=== PATIENT | female | born 1985 | race Caucasian/White ===

== ENCOUNTER → 2021-02-14 08:00 | Outpatient (CLI) | payer OTHER, SELFPAY ==
[2021-02-14 09:43] LABS: HCG,Quantitative 46476 mIU/ml (0-5.42)
== END ==
PROVIDERS: Visit Provider Nurse Practitioner Obstetrics & Gynecology
DX: Z34.90 Encounter for supervision of normal pregnancy, unspecified, unspecified trimester (principal)
CPT/HCPCS: 36415; 84702

== ENCOUNTER → 2021-02-28 11:36 | Outpatient (CLI) | payer OTHER, SELFPAY ==
[2021-02-28 12:14] LABS: Basophils % 0.3 % (0.1-2.0); Eosinophils % 0.6 % (0.1-12.0); Hematocrit 41.3 % (37.0-47.0); Lymphocytes # 1.9 K/mm3 (0.7-4.5); Lymphocytes % 25.8 % (10-50); Mean Corpuscular HGB Conc 33.8 g/dL (31.8-35.4); Mean Corpuscular Hemoglobin 29.2 pg (27.0-31.2); Mean Corpuscular Volume 86.5 fl (81-99); Mean Platelet Volume 6.8 fl (7.4-10.4); Monocytes # 0.4 K/mm3 (0.1-1.0); Monocytes % 5.5 % (1.7-9.3); Neutrophils # 4.9 K/mm3 (1.8-7.8); Neutrophils % 67.8 % (37.0-80.0); Platelet Count 387 K/mm3 (142-424); Red Blood Count 4.78 M/mm3 (4.20-5.40); Red Cell Distribution Width 12.8 % (11.5-17.5); White Blood Count 7.2 K/mm3 (4.8-10.8)
[2021-03-01 11:58] LABS: Rapid Plasma Reagin Ab Titer Non Reactive (NonRea<1:1)
[2021-03-02 06:20] LABS: HIV Screen 4th Generation wRfx Non Reactive (Non Reactive); Hepatitis B Surface Antigen Negative (Negative); Hepatitis C Antibody <0.1 s/co ratio (0.0-0.9)
== END ==
PROVIDERS: Visit Provider Nurse Practitioner Obstetrics & Gynecology
DX: Z34.90 Encounter for supervision of normal pregnancy, unspecified, unspecified trimester (principal)
CPT/HCPCS: 36415; 85025; 86592; 86703; 86762; 86850; 87340; 87380; G0432

== ENCOUNTER → 2021-03-06 14:42 | Outpatient (CLI) | payer OTHER, SELFPAY ==
--- NOTE | 2021-03-06 14:42 | US_ITS ---
PROCEDURE: US OB <= 14 WEEKS FETUS CLINICAL INDICATION: for dates Early Ob for dates COMPARISON: No exams were available for comparison FINDINGS: An intrauterine gestational sac is present with a pole with a crown-rump length of 2.49cm correlating to gestational age of 9weeks 2days. heart tones are present with an FHR of 178bpm. Yolk sac is noted. 17 mm right corpus luteum noted IMPRESSION: Live IUP at 9 weeks 2 days Estimated due date by Ultrasound is 10/07/2021 Dictated by: Neville Mc MD 03/06/2021 17:59 Nveille Mc MD in OV 03/06/2021 17:59
== END ==
PROVIDERS: PCP Internal Medicine Adolescent Medicine; Visit Provider Nurse Practitioner Obstetrics & Gynecology
DX: Z34.90 Encounter for supervision of normal pregnancy, unspecified, unspecified trimester (principal)
CPT/HCPCS: 76801

== ENCOUNTER → 2021-05-23 13:40 | Outpatient (CLI) | payer OTHER, SELFPAY ==
--- NOTE | 2021-05-23 13:41 | US_ITS ---
PROCEDURE: US OB /MATERNAL DETAIL CLINICAL INDICATION: 20 weeks gestation Anatomy Maternal obesity Breech Placenta anterior, high Cervix, fluid and anatomy normal COMPARISON: US US OB <= 14 WEEKS FETUS from 03/06/2021 FINDINGS: There is a single live fetus which is in breech presentation. Cervix is closed measuring 4 cm. Placenta is anterior and grade 1. Complete survey performed and was unremarkable on the submitted images as in PACS. No discrete anomalies identified on survey imaging by technologist. Active fetus. Three-vessel cord with satisfactory umbilical cord insertion. 4- chamber heart noted. Survey of brain & ventricles Unremarkable. Face and neck survey unremarkable. Diaphragm and chest views unremarkable. Abdomen: Both kidneys noted and unremarkable. Stomach noted and satisfactory. Spine: Survey of the spine satisfactory with no anomalies identified nor imaged. Both arms and legs noted. Amniotic Fluid: Adequate. Maternal adnexa: No significant findings. Measurements: Average ultrasound age 20weeks 3days. Gestational Age 20weeks 4days Estimated due date by ultrasound age 1110/07/2021. Estimated weight 347g BPD = 20weeks 4days OFD = 20weeks 4days HC = 19weeks 5days AC = 20weeks 3days FL = 20weeks 4days Growth Percentile= 32Percent% Heart Rate = 156bpm Cerebellum = 20weeks 2days Humerus = 20weeks 5days HC/AC is 1.14 CI is 0.79 FL/BPD is 0.7 FL/AC is 0.22 IMPRESSION: Live IUP in breech presentation an average ultrasound age of 20 weeks 3 days. No obvious anomalies. Please see above for detail Dictated by: Neville Mc MD 05/24/2021 07:57 Neville Mc MD in OV 05/24/2021 07:57
== END ==
PROVIDERS: PCP Internal Medicine Adolescent Medicine; Visit Provider Nurse Practitioner Obstetrics & Gynecology
DX: Z34.92 Encounter for supervision of normal pregnancy, unspecified, second trimester (principal); Z3A.20 20 weeks gestation of pregnancy
CPT/HCPCS: 76811

== ENCOUNTER → 2021-07-21 08:38 | Outpatient (CLI) | payer OTHER, SELFPAY | PROVIDERS: Visit Provider Nurse Practitioner Obstetrics & Gynecology | DX: Z34.90 Encounter for supervision of normal pregnancy, unspecified, unspecified trimester (principal) ==

== ENCOUNTER → 2021-07-28 08:36 | Outpatient (CLI) | payer OTHER, SELFPAY ==
[2021-07-28 09:06] LABS: Glucose,Fasting 114 mg/dl (74-100)
[2021-07-28 10:38] LABS: Glucose 1 Hour 185 mg/dL (74-100)
== END ==
PROVIDERS: Visit Provider Nurse Practitioner Obstetrics & Gynecology
DX: Z34.90 Encounter for supervision of normal pregnancy, unspecified, unspecified trimester (principal)
CPT/HCPCS: 36415; 82951

== ENCOUNTER → 2021-08-03 08:14 | Outpatient (CLI) | payer OTHER, SELFPAY ==
[2021-08-03 08:46] LABS: Glucose,Fasting 113 mg/dl (74-100)
[2021-08-03 11:00] LABS: Glucose 1 Hour 173 mg/dL (74-100)
[2021-08-03 11:25] LABS: Glucose 2 Hour 155 mg/dL (74-100)
[2021-08-03 12:33] LABS: Glucose 3 Hour 132 mg/dL (74-100)
== END ==
PROVIDERS: Visit Provider Nurse Practitioner Obstetrics & Gynecology
DX: Z34.90 Encounter for supervision of normal pregnancy, unspecified, unspecified trimester (principal)
CPT/HCPCS: 36415; 82951

== ENCOUNTER → 2021-09-13 14:08 | Outpatient (CLI) | payer OTHER, SELFPAY | PROVIDERS: Visit Provider Nurse Practitioner Obstetrics & Gynecology | DX: Z34.90 Encounter for supervision of normal pregnancy, unspecified, unspecified trimester (principal) | CPT/HCPCS: 86403 ==

== ENCOUNTER → 2021-09-18 10:20 | Outpatient (CLI) | payer OTHER, SELFPAY ==
--- NOTE | 2021-09-18 10:20 | US_ITS ---
PROCEDURE: US OB BIOPHYSICAL PROFILE CLINICAL INDICATION: LGA TECHNIQUE: FINDINGS: The following parameters are obtained: Average ultrasound age is Average 37weeks 4days Estimated due date by ultrasound is 10/05/2021. Estimated weight is 3,459g. This is 83 percentile The fetus is cephalic in presentation. The cervix is closed measuring 4 cm. The placenta is anterior and grade 2. No previa or abruption. BPD: 37weeks 3days OFD: 37weeks 3days HC: 36 weeks 0 days AC: 39 weeks 3 days FL: 38 weeks 3 days heart rate: 153bpm bpm. HC/AC: 0.9 Cephalic index: 0.8 FL/BPD: 0.84 FL/AC: 0.21 Amniotic fluid index: 20.66cm Qualitative AFV: 2 breathing movements: 2 Gross body movements: 2 Tone: 2 Biophysical profile score: 8 IMPRESSION: Live IUP in cephalic presentation with an average ultrasound age of 37 weeks 4 days. Estimated weight is 3459 g which is a 3rd percentile. INC upper normal at 20 cm Biophysical profile 8 of 8 Dictated by: Neville Mc MD 09/18/2021 18:43 Neville Mc MD in OV 09/18/2021 18:43
== END ==
PROVIDERS: PCP Internal Medicine Adolescent Medicine; Visit Provider Nurse Practitioner Obstetrics & Gynecology
DX: Z3A.37 37 weeks gestation of pregnancy; O36.60X0 Maternal care for excessive fetal growth, unspecified trimester, not applicable or unspecified
CPT/HCPCS: 76816; 76819

== ENCOUNTER 2021-10-01 04:45 | Inpatient (IN) | payer OTHER, SELFPAY ==
[2021-10-01 04:55] VITALS: BMI 40.1
[2021-10-01 05:33] LABS: Coronavirus 19, PCR Not Detected (NotDetected); Influenza A, PCR Not Detected (NotDetected); Influenza B, PCR Not Detected (NotDetected); Microscopic, Urine URINE MICROSCOPIC (MICROSCOPIC)
[2021-10-01 05:34] LABS: Basophils # 0.1 K/mm3 (0-0.2); Basophils % 0.8 % (0.1-2.0); Eosinophils # 0.2 K/mm3 (0.0-0.4); Eosinophils % 2.6 % (0.1-12.0); Hematocrit 33.6 % (37.0-47.0); Hemoglobin 11.5 g/dL (12.2-16.2); Lymphocytes # 1.9 K/mm3 (0.7-4.5); Lymphocytes % 26.9 % (10-50); Mean Corpuscular HGB Conc 34.1 g/dL (31.8-35.4); Mean Corpuscular Hemoglobin 29.2 pg (27.0-31.2); Mean Corpuscular Volume 85.6 fl (81-99); Mean Platelet Volume 8.4 fl (7.4-10.4); Monocytes # 0.4 K/mm3 (0.1-1.0); Monocytes % 6.1 % (1.7-9.3); Neutrophils # 4.6 K/mm3 (1.8-7.8); Neutrophils % 63.6 % (37.0-80.0); Platelet Count 406 K/mm3 (142-424); Red Blood Count 3.92 M/mm3 (4.20-5.40); Red Cell Distribution Width 14.2 % (11.5-17.5); White Blood Count 7.2 K/mm3 (4.8-10.8)
[2021-10-01 05:42] LABS: Appearance,Urine SL CLOUDY (Clear); Bilirubin,Urine Negative (Negative); Blood, Urine Negative (Negative); Color,Urine YELLOW (Yellow); Glucose,Urine (UA) Negative (Negative); Ketones,Urine Negative (Negative); Leukocyte Esterase,Urine TRACE (Negative); Nitrate,Urine Negative (Negative); Protein,Urine Negative (Negative); Specific Gravity, Urine >= 1.030 (1.005-1.030)
[2021-10-01 05:52] LABS: Barbiturates Screen,Urine Negative ng/ml (<200)
[2021-10-01 05:53] VITALS: BP 133/89; PULSE 111; RESP 18; TEMP 36.9; O2SAT 98; BMI 40.1
[2021-10-01 05:53] LABS: Amphetamine/Metha Screen,Urine Negative ng/ml (<1000); Benzodiazepines Screen,Urine Negative ng/ml (<200)
[2021-10-01 05:54] LABS: Cannabinoid Screen,Urine Negative ng/ml (<50)
[2021-10-01 05:55] LABS: Cocaine Screen,Urine Negative ng/ml (<300); Methadone Screen,Urine Negative ng/ml (<300)
[2021-10-01 05:56] LABS: Opiate Screen,Urine Negative ng/ml (<300); Phencyclidine Screen,Urine Negative ng/ml (<25)
[2021-10-01 07:58] VITALS: BP 132/70; PULSE 93; RESP 18; TEMP 36.6
--- NOTE | 2021-10-01 08:54 | HMH.LABNOT ---
Labor Note - Subjective: Date: 10/01/21 Time: 08:54 regular contraction - Objective: NST:: Reactive Contractions:: every 2-3 minutes Cervical Dilation:: 3-4 Effacement:: 75% Station: -2 Membranes: artificially ruptured - Fetus: Monitoring?: Yes monitoring type:: Internal Comment:: I inserted an IUPC as well as a scalp clip - Assessment: Labor progressing?: Yes Cephalopelvic disproportion?: No Patient Problems: All Active Problems (Acute) - Plan: Anesthesia for epidural?: Yes Continue to labor down?: Yes Plan for ?: No Continue to monitor?: Yes Start pushing?: No
--- NOTE | 2021-10-01 08:55 | HMH.OBAPHP ---
OB - H&P: HPI Antepartum - History of Present Illness Chief complaint: Chronic hypertension, LGA, poly- History of present illness: Is a 36-year-old 4 para 2 aborta 1 who was 39 and 2 weeks gestational age. She has been followed with chronic hypertension and a large for gestational age . She also has mild polyhydramnios. As result that we have elected to induce her at term - History of Present Criteria for establishing EDC:: LMP confirmed by 1st trimester US care: good care Ultrasounds: normal 1st trimester US, normal mid trimester US Obstetrical complications: gestational hypertension, other Medical complications: none - Labs Blood type: B (+) positive Rubella: immune RPR/VDRL: nonreactive GBS status: negative HBsAG: negative [facility] History I have reviewed the patient's past medical history: Yes *Have you ever received a pneumonia vaccine?: No *Have you received a flu vaccine this season?: No Other Surgeries: Yes: No Previous Surgery. No: Amputation: No Fractures: No - *Social History Smoking Status: Former smoker Alcohol Intake: never *Occupational Status:: employed *Travel in the last 8 weeks: None Family Hx:: No significant family history Para: 2 Review of Systems - Review of Systems Review of systems:: pertinent systems reviewed and negative unless documented below Meds Home Medications Medication Instructions Recorded Confirmed Type vits no.126-ferrous fum 1 tab PO DAILY tab 03/28/21 10/01/21 History 28 mg iron-folic acid 800 mcg tablet Ferrous Sulfate 325 mg PO DAILY 10/01/21 10/01/21 History Labetalol HCl See Rx Instructions .ROUTE .COMPLEX 10/01/21 10/01/21 History Allergies Allergy/AdvReac Type Severity Reaction Status Date / Time No Known Allergies Allergy Verified 09/27/21 10:54 OB - H&P: Exam - Physical Exam Vital signs: Temp Pulse Resp BP Pulse Ox 97.9 F 93 H 18 132/70 98 10/01/21 07:58 10/01/21 07:58 10/01/21 07:58 10/01/21 07:58 10/01/21 05:53 - Constitutional no acute distress - Routine HEENT Exam Head: Present: normocephalic Eye: Present: EOMI, PERRL ENT: Present: mucous membranes moist - Routine Neck Exam Present: supple, full ROM - Routine Respiratory Exam Absent: accessory muscle use (good air entry bilaterally), respiratory distress, wheezes, crackles - Routine Cardiovascular Exam Present: RRR. Absent: murmur - Routine Abdominal Exam Present: soft, normoactive bowel sounds. Absent: tenderness, distended, guarding - Routine Rectal Exam Patient deferred: visual exam, digital exam - Routine Exam Patient deferred: external exam, groin exam, perineal exam - Routine Extremities Exam Present: full ROM. Absent: cyanosis, edema - Routine Skin Exam Present: intact. Absent: cyanosis - Routine Neurological Exam Present: alert, oriented X3 - Routine Psychiatric Exam Present: normal affect OB - Results - Labs Labs: Short CBC 10/01/21 Range/Units 05:25 WBC 7.2 (4.8-10.8) K/mm3 Hgb 11.5 L (12.2-16.2) g/dL Hct 33.6 L (37.0-47.0) % Plt Count 406 (142-424) K/mm3 Urine 10/01/21 Range/Units 05:25 Urine Color Yellow (Yellow) Urine Appearance Sl cloudy (Clear) Urine pH 6.0 (5.0-8.5) Ur Specific [place] >= 1.030 (1.005-1.030) Urine Protein Negative (Negative) Urine Glucose (UA) Negative (Negative) OB - A/P Antepartum (1) Gestational hypertension Status: Acute (2) Polyhydramnios affecting in third trimester Status: Acute (3) Large for gestational age fetus affecting mother, antepartum Status: Acute - Additional Plan Planning to breastfeed?: No Plan: induction Additional Information:: She is receiving IV oxytocin and I have ruptured her membranes. We will expect a vaginal delivery
--- NOTE | 2021-10-01 11:00 | P.PCN_ITS ---
- Delivery Note Delivery Date:: 10/01/21 Delivery Time:: 09:58 Anesthesia Type: Epidural Was labor medically induced?: Yes Induction method: per pitocin protocol Gestational age (weeks): 39 Infant delivered prior to 39 weeks?: No Justification for early elective delivery:: Benign Hypertension, Gestational Hypertension Gender: Female at 1 minute: 8 at 5 minutes: 9 LAC or MLE?: LAC Delivery Procedure:: She is a 6-year-old 4 para 2 aborta 1 who is 39 age. She was known to have gestational hypertension with some chronic hypertension and has been on labetalol. She had mild polyhydramnios and a large for gestational age infant. As result of that we elected to induce her labor at term. She was started on IV oxytocin and had her membranes ruptured. Under labor epidural she progressed to full dilation and delivered spontaneously a liveborn female child at 9 AM on the morning of October 01, 2021. On delivery of the head it was noted that there was a nuchal cord. I was not able to reduce the cord before the baby delivered spontaneously. I then reduced the cord after delivery of the baby. The baby was vigorous. The oropharynx and nasopharynx were bulb suctioned. We allowed the cord to continue to pulsate for approximately 1 minute. Cord was then doubly clamped and cut and the infant was placed on the mother's abdomen for further care. The nurses assigned Apgars of 8 at 1 minute and 9 at 5 minutes. We then obtained cord blood. She received IV oxytocin and using gentle traction on the cord and countertraction on the fundus I was able to easily deliver the placenta 3 minutes after delivery. Had a normal three-vessel cord. She had a small first- degree vaginal laceration was repaired with a single [id number] 3-0 Vicryl Rapide suture. She has been positive blood, she is rubella immune and was group B streptococcus negative. She plans to breast-feed. Her estimated blood loss was approximately 150 cc per Laceration:: vaginal
--- NOTE | 2021-10-01 15:23 | HMH.ANESCL ---
[facility] Anesthesia Checklist - Structural Data Admitted From: Inpatient Planned Operative Procedure/s: labor epidural Consent for Planned Operative Procedure(s) Verified: Yes - Airway Assessment C-Spine Mobility Assessed: Yes TMJ Mobility Assessed: Yes Dentition: Good Dentition - Neurological Assessment Level of Consciousness: Awake, Alert, Appropriate - Anesthesia Plan Anesthesia Risk discussed: Yes Anesthesia Plan: Verified ASA Class: II Anesthesia Type: Epidural [facility] History I have reviewed the patient's past medical history: Yes *Have you ever received a pneumonia vaccine?: No *Have you received a flu vaccine this season?: No Anesthesia experience/problems:: none Other Surgeries: Yes: No Previous Surgery. No: Amputation: No Fractures: No - *Social History Smoking Status: Former smoker Alcohol Intake: never Substance Use Type: denies use *Occupational Status:: employed *Travel in the last 8 weeks: None Family Hx:: No significant family history Para: 2
[2021-10-01 19:37] VITALS: BP 142/82; PULSE 85; RESP 18; TEMP 36.9; O2SAT 99
[2021-10-02 04:05] VITALS: BP 133/78; PULSE 95; RESP 18; TEMP 37.1; O2SAT 98
[2021-10-02 06:33] LABS: Hematocrit 32.2 % (37.0-47.0); Hemoglobin 10.8 g/dL (12.2-16.2)
[2021-10-02 07:48] VITALS: BP 137/82; PULSE 94; RESP 17; TEMP 36.5; O2SAT 98
--- NOTE | 2021-10-02 11:35 | HMH.OBDCSM ---
General - General Admission date:: 10/01/21 Discharge date: 10/02/21 HPI - History of Present Illness History of present illness: She is a 36-year-old 4 para 2 aborta 1 who was 39 2 weeks gestational age. She was feeling pressure and having discomfort so elected to induce her labor at term. She also has chronic hypertension. Hospital Course Hospital Course: She was started on IV oxytocin and had her membranes ruptured. Under labor epidural she progressed to full dilation and delivered spontaneously a liveborn female child at 9:58 AM on the morning of October 01, 2021. The baby weighed 8 pounds 4 ounces and was 20 inches long. She had Apgars of 8 at 1 minute and 9 at 5 minutes. Anjum had a small first-degree perineal laceration. She has done well and has remained afebrile throughout her hospitalization. She is eating and drinking and ambulating. She is breast-feeding. Her lochia is normal. She has been positive blood, she is rubella immune and was group B streptococcus negative. She is discharged home to follow-up with me in approximately 2 weeks time. She will continue with her vitamins and iron. She is given the usual instructions with respect to limiting her activity, driving and sexual activity. Her condition on discharge is stable and improved. Rhogam Administration: Not Indicated Objective Vital signs: Temp Pulse Resp BP Pulse Ox 97.7 F 94 H 17 137/82 98 10/02/21 07:48 10/02/21 07:48 10/02/21 07:48 10/02/21 07:48 10/02/21 07:48 no acute distress - *Routine HEENT Exam Head: Present: normocephalic Eye: Present: EOMI, PERRL ENT: Present: mucous membranes moist Results Labs on day of discharge: Labs from last 24 hours 10/02/21 06:17 Hgb 10.8 L Hct 32.2 L DS: Diagnosis - Discharge Diagnosis (1) Gestational hypertension Status: Acute (2) Polyhydramnios affecting in third trimester Status: Acute (3) Large for gestational age fetus affecting mother, antepartum Status: Acute Discharge Plan - Patient Discharge Instructions ACTIVITY: No heavy lifting DIET: continue same diet Additional Instructions: NOTHING IN VAGINA FOR 6 WEEKS NO HEAVY LIFTING OR STRENUOUS ACTIVITY FOLLOW-UP WITH DR. WILKS ON Patient Instructions: Depression, Hemorrhage, DI for Labor and Delivery, Vaginal , DI for Pre-eclampsia, [facility] Post Discharge Instructions, Preventing the Spread of Coronavirus Discharge Instructions - Follow up Plan Follow up with: Mickey Wilks MD [Staff Physician] - 10/16/21 10:45 am Disposition: Home, Self-Care Condition at discharge:: Stable Home Medications: Home Medications Medication Instructions Recorded Confirmed Type vits no.126-ferrous fum 1 tab PO DAILY tab 03/28/21 10/01/21 History 28 mg iron-folic acid 800 mcg tablet Ferrous Sulfate 325 mg PO DAILY 10/01/21 10/01/21 History Labetalol HCl 200 mg PO BID 10/01/21 10/01/21 History Prescriptions/Medication Reconciliation: Continued vits no.126-ferrous fum 28 mg iron-folic acid 800 mcg tablet 1 tab PO DAILY tab Labetalol HCl 200 mg PO BID Ferrous Sulfate 325 mg PO DAILY - Problem Reconciliation Problems Reviewed?: Yes
== END 2021-10-02 14:18 | disposition home or self-care (01) | DRG 807 ==
PROVIDERS: Admitting Provider Nurse Practitioner Obstetrics & Gynecology; PCP Internal Medicine Adolescent Medicine; Visit Provider Nurse Practitioner Obstetrics & Gynecology
DX: O10.92 Unspecified pre-existing hypertension complicating childbirth (principal); Z37.0 Single live birth; Z3A.39 39 weeks gestation of pregnancy; O70.0 First degree perineal laceration during delivery; O69.9XX0 Labor and delivery complicated by cord complication, unspecified, not applicable or unspecified; O36.63X0 Maternal care for excessive fetal growth, third trimester, not applicable or unspecified
CPT/HCPCS: 59409; 59025; 80305; 81001; 85014; 85018; 85025; 86850; 94761; C1758; C9803; G0283; U0003; U0005

== ENCOUNTER → 2021-11-12 09:46 | Outpatient (CLI) | payer OTHER, SELFPAY ==
[2021-11-12 10:16] LABS: Basophils # 0.1 K/mm3 (0-0.2); Basophils % 1.6 % (0.1-2.0); Eosinophils # 0.3 K/mm3 (0.0-0.4); Eosinophils % 4.9 % (0.1-12.0); Hematocrit 43.6 % (37.0-47.0); Hemoglobin 14.2 g/dL (12.2-16.2); Lymphocytes % 33.4 % (10-50); Mean Corpuscular HGB Conc 32.7 g/dL (31.8-35.4); Mean Corpuscular Hemoglobin 28.2 pg (27.0-31.2); Mean Corpuscular Volume 86.3 fl (81-99); Mean Platelet Volume 7.3 fl (7.4-10.4); Monocytes # 0.3 K/mm3 (0.1-1.0); Monocytes % 5.4 % (1.7-9.3); Neutrophils # 3.3 K/mm3 (1.8-7.8); Neutrophils % 54.7 % (37.0-80.0); Platelet Count 386 K/mm3 (142-424); Red Blood Count 5.06 M/mm3 (4.20-5.40); Red Cell Distribution Width 13.6 % (11.5-17.5)
[2021-11-12 11:03] LABS: Chloride 102 mmol/L (98-107); Potassium 4.4 mmoL/L (3.5-5.1); Sodium 140 mmol/L (136-145)
[2021-11-12 11:05] LABS: HCG Qualitative, Serum Negative (Negative)
[2021-11-12 11:06] LABS: Anion Gap 14.4 mEq/L (5-15); Blood Urea Nitrogen 14 mg/dl (7-17); Calcium 9.1 mg/dl (8.4-10.2); Carbon Dioxide 28 mmol/L (22.0-30.0); Estimated Glomerular Filt Rate 72 ml/min (>60); GFR (African American) 87 ML/MIN (>60); Glucose 109 mg/dl (74-100)
== END ==
PROVIDERS: Visit Provider Nurse Practitioner Obstetrics & Gynecology
DX: Z01.818 Encounter for other preprocedural examination (principal); Z11.52 Encounter for screening for COVID-19; Z30.09 Encounter for other general counseling and advice on contraception
CPT/HCPCS: 36415; 80048; 84703; 85025; C9803; U0003; U0005

== ENCOUNTER 2021-11-14 06:55 | Day surgery (SDC) | payer OTHER, SELFPAY ==
[2021-11-06 13:43] VITALS: BMI 36.6
[2021-11-14] VITALS (11 sets, daily range): BP systolic 116–165; BP diastolic 66–94; PULSE 60–90; RESP 14–18; TEMP 36.2–43; O2SAT 92–98
--- NOTE | 2021-11-14 08:16 | HMH.ANESCL ---
[facility] Anesthesia Checklist - Patient Identification Patient Identification: Arm Band - Structural Data Admitted From: Home Planned Operative Procedure/s: Lap. salpingectomy Consent for Planned Operative Procedure(s) Verified: Yes - NPO Status Verified Time NPO: 00:00 - Additional verifications Anesthesia Reactions: No Hx Blood Transfusions: No Blood Transfusion Reaction: No - Airway Assessment C-Spine Mobility Assessed: Yes TMJ Mobility Assessed: Yes Dentition: Good Dentition - Neurological Assessment Level of Consciousness: Awake Hx Seizures: No Numbness or tingling in extremities: No - Anesthesia Plan Anesthesia Risk discussed: Yes Anesthesia Plan: Verified ASA Class: II Anesthesia Type: General [facility] History I have reviewed the patient's past medical history: Yes Medical History: Reports:: Hypertension Denies:: Cancer, Diabetes Mellitus Type 1, Diabetes Mellitus Type 2, Internal Pacemaker, MRSA, Seizures *Have you ever received a pneumonia vaccine?: No *Have you received a flu vaccine this season?: No Other Medical History: Denies: Blood Transfusion Reaction Anesthesia experience/problems:: None Other Surgeries: Yes: No Previous Surgery. No: , Pacemaker Amputation: No Fractures: No - *Social History Last grade of school completed: High school graduate Smoking Status: Never smoker Alcohol Intake: never Substance Use Type: denies use *Occupational Status:: employed Housing: house Household Members: spouse, family *Travel in the last 8 weeks: None Family Hx:: Diabetes
--- NOTE | 2021-11-14 09:18 | P.OP_ITS ---
Date of procedure: 11/14/21 Pre-op Diagnosis:: Desire for sterilization Post-op Diagnosis:: Desire for sterilization Procedure performed:: Laparoscopic bilateral salpingectomy Surgeon:: Mickey Wilks MD ABRASIVE WHEEL MOLDER:: Fredy Aguirre Anesthesia: GETA Estimated blood loss (mL): 25 Clinical Note:: She is a 36-year-old lady who expressed a desire for sterilization. The risks and benefits as well as the irreversibility of bilateral salpingectomy were discussed with the patient prior to surgery. Operative findings:: She had an anteverted bulky uterus. There was a posterior 3 mm fibroid as well as a intramural posterior 3 cm fibroid. Operative note:: She was taken to the operating room where general anesthesia was found be adequate. She was prepped and draped in normal sterile fashion in the semilithotomy position. A weighted speculum was placed in the vagina and the anterior lip of the cervix was grasped with a tenaculum. I then inserted a Pat uterine manipulator into the cervical os. The balloon was then insufflated. I changed gloves and injected 10 cc of 0.5% ropivacaine around her umbilicus and made a small incision within the umbilicus. I inserted a Veress needle into the abdominal cavity. The peritoneal cavity was then insufflated with carbon dioxide gas to a pressure of 20 mmHg. I then inserted a 5 millimeter trocar under direct vision. I injected through and through the pubic hairline, made a small incision here and inserted an 8 mm trocar under direct vision. I ident ified the inferior epigastric artery on the left side, went lateral to these and injected through and through. I then placed a 5 mm trocar here under direct vision. The pelvis and upper abdomen were then inspected and the findings were as previously dictated. I grasped the right tube at the cornua and using harmonic scalpel on coagulation mode I cut through the tube. I then grasped the distal tube and using harmonic scalpel cut along the mesosalpinx. The tube was removed through 8 mm trocar site. This was similarly performed on the patient's left side. I then injected 30 cc of 0.5% ropivacaine into the pelvis. After assuring hemostasis the gas was let out of the abdomen and hemostasis was once again assured. The abdomen was then reinsufflated. The secondary trochars were removed under direct vision. The gas was let out her abdomen. The primary trocar was then removed. The 8 mm trocar site was closed deeply with 2-0 Vicryl suture followed by subcuticular 4-0 Monocryl suture. The 5 mm trocar sites were closed with subcuticular 4-0 Monocryl. Sterile dressings were applied. The patient tolerated the procedure well and was taken to the recovery room in excellent condition. All sponge instrument and needle counts were correct. The estimated blood loss was less than 25 cc. Condition: stable Disposition: PACU Specimens:: Bilateral fallopian tubes Complications:: None
--- NOTE | 2021-11-14 09:31 | P.PN_ITS ---
[facility] Anesthesia Record Part I Intake, IV Amount: 700 Estimated blood loss (mL): 25 Urine output (mL): 0 Blood Pressure: 126/73 SaO2: 92 Pulse Rate: 74 Respiratory Rate: 17 Temperature: 98.7 F Patient is:: Drowsy, Oral/Nasal airway Stable to PACU at:: 09:26
--- NOTE | 2021-11-14 09:57 | SUR.PHASEI ---
[id number]- detailed report called to denise price in post op at this time.
--- NOTE | 2021-11-16 10:03 | P.PN_ITS ---
[facility] Anesthesia Record Part II Discharge Time: 10:06 Destination: [facility] PACU nurse assessment reviewed?: Yes Patient Condition:: Good Anesthesia Complications:: None Swallowing reflex intact?: Yes Cyanosis?: No Blood Pressure: 126/80 Pulse Rate: 68 Temperature: 97.2 F Mental Status: Alert & Oriented Pain level:: 0 Nausea and/or vomitting:: None Intake, IV Amount: 1,000
[2021-11-16 10:04] VITALS: BP 126/80; PULSE 68; TEMP 36.2
== END 2021-11-14 10:50 | disposition home or self-care (01) ==
LOC: OR 06:56
PROVIDERS: PCP Internal Medicine Adolescent Medicine; Visit Provider Nurse Practitioner Obstetrics & Gynecology
PROC: (CPT 58661; principal; 2021-11-14 08:30)
DX: Z30.2 Encounter for sterilization (principal); N85.4 Malposition of uterus; I10 Essential (primary) hypertension; Z83.3 Family history of diabetes mellitus; Z79.899 Other long term (current) drug therapy
CPT/HCPCS: 58661; 96374; J2405; J2710

== ENCOUNTER 2022-02-23 10:53 | Emergency (ER) | payer OTHER, SELFPAY ==
[2022-02-23] VITALS (9 sets, daily range): BP systolic 118–147; BP diastolic 68–100; PULSE 76–97; RESP 16–18; TEMP 37.1; O2SAT 98–100; BMI 36.6
--- NOTE | 2022-02-23 11:08 | HMH.EDNVD ---
ED Disposition Clinical Impression: Cholelithiasis Qualifiers: Cholelithiasis location: gallbladder and bile duct Cholecystitis presence: without cholecystitis Biliary obstruction: with biliary obstruction Qualified Code(s): K80.71 - Calculus of gallbladder and bile duct without cholecystitis with obstruction Disposition: Home, Self-Care Condition on Discharge: Fair Instructions: Gallstones, DI for Gallstones Additional Instructions: Return to the emergency department immediately if you feel worse in any way. Follow-up with your primary care physician on Friday even if you feel normal and better. Stick with a clear liquid diet until you have seen your primary care physician. Your work-up today showed that you have gallstones. You may have a gallstone in the common bile duct. If this is the case you are likely to get worse and you will start having severe pain and I would strongly recommend that you return to the emergency department if you feel such pain and or continued vomiting. Eventually you will have to have your gallbladder removed. Prescriptions: Ondansetron [Zofran 4mg ODT] 4 mg PO TIDP PRN #10 tab PRN Reason: Nausea Transmission Status: Pending to [id number] Referrals: Kei Conklin MD [Primary Care Provider] - - Critical Care Critical Care Time: No Attestation: On , the high probability of a clinically significant, sudden or life threatening deterioration of the following system(s) required my full and direct attention, intervention and personal management. The time I documented below is in addition to time spent performing reported procedures but includes the following listed in this critical care notation. Medical Decision Making - Medical Records Medical records reviewed: Yes: I reviewed the patient's medical records. - Siddharth Inquiry Pt receiving controlled substance: No Vital Signs: 02/23/22 10:55 02/23/22 11:30 02/23/22 12:00 Temperature 98.8 F Temperature Source Oral Pulse Rate 86 90 Pulse Rate [Left Radial] 97 H Respiratory Rate 18 18 17 Blood Pressure 121/68 118/77 Blood Pressure [Right Arm] 147/100 H Blood Pressure Mean 93 91 Blood Pressure Mean [Right Arm] 115 Blood Pressure Source [Right Arm] Automatic Cuff Blood Pressure Position [Right Arm] Sitting 02 Sat by Pulse Oximetry 98 98 99 Oxygen Delivery Method Room Air 02/23/22 12:31 02/23/22 13:00 02/23/22 13:30 Temperature Temperature Source Pulse Rate 90 76 96 H Pulse Rate [Left Radial] Respiratory Rate 16 17 16 Blood Pressure 118/74 119/76 136/96 H Blood Pressure [Right Arm] Blood Pressure Mean 95 92 109 Blood Pressure Mean [Right Arm] Blood Pressure Source [Right Arm] Blood Pressure Position [Right Arm] 02 Sat by Pulse Oximetry 100 100 98 Oxygen Delivery Method 02/23/22 14:00 Temperature Temperature Source Pulse Rate 84 Pulse Rate [Left Radial] Respiratory Rate 17 Blood Pressure 137/80 Blood Pressure [Right Arm] Blood Pressure Mean 99 Blood Pressure Mean [Right Arm] Blood Pressure Source [Right Arm] Blood Pressure Position [Right Arm] 02 Sat by Pulse Oximetry 99 Oxygen Delivery Method - Lab Data Lab results reviewed: Yes: I reviewed the patient's lab results. Lab Results 02/23/22 11:00: Urine Color Yellow, Urine Appearance Clear, Urine pH 5.5, Ur Specific [place] >= 1.030, Urine Protein 1+, Urine Glucose (UA) Negative, Urine Ketones 2+, Urine Blood Negative, Urine Nitrate Positive, Urine Bilirubin 3+ A, Urine Urobilinogen 4.0, Ur Leukocyte Esterase Trace, Urine RBC Occasional, Urine WBC 3-5, Ur Squamous Epith Cells 5-10, Urine Bacteria Trace, Urine Yeast Occasional 02/23/22 11:00: Urine HCG, Qual Negative 02/23/22 11:20: WBC 4.2 L, RBC 4.97, Hgb 14.8, Hct 43.8, MCV 88.2, MCH 29.8, MCHC 33.7, RDW 13.6, Plt Count 397, MPV 7.4, Neut % (Auto) 70.9, Lymph % (Auto) 18.9, [place] % (Auto) 4.7, Eos % (Auto) 2.9, Baso % (Auto) 2.6 H, Neut # (Auto) 3.0, Lym
[2022-02-23 11:17] LABS: Microscopic, Urine URINE MICROSCOPIC (MICROSCOPIC)
[2022-02-23 11:23] LABS: Appearance,Urine CLEAR (Clear); Blood, Urine Negative (Negative); Color,Urine YELLOW (Yellow); Glucose,Urine (UA) Negative (Negative); Ketones,Urine 2+ (Negative); Leukocyte Esterase,Urine TRACE (Negative); Nitrate,Urine POSITIVE (Negative); PH,Urine 5.5 (5.0-8.5); Protein,Urine 1+ (Negative); Specific Gravity, Urine >= 1.030 (1.005-1.030)
[2022-02-23 11:25] LABS: Bilirubin,Urine 3+ (Negative)
[2022-02-23 11:26] LABS: Urine Pregnancy, HCG Qual. Negative (Negative)
[2022-02-23 11:29] LABS: Basophils # 0.1 K/mm3 (0-0.2); Basophils % 2.6 % (0.1-2.0); Eosinophils # 0.1 K/mm3 (0.0-0.4); Eosinophils % 2.9 % (0.1-12.0); Hematocrit 43.8 % (37.0-47.0); Hemoglobin 14.8 g/dL (12.2-16.2); Lymphocytes # 0.8 K/mm3 (0.7-4.5); Lymphocytes % 18.9 % (10-50); Mean Corpuscular HGB Conc 33.7 g/dL (31.8-35.4); Mean Corpuscular Hemoglobin 29.8 pg (27.0-31.2); Mean Corpuscular Volume 88.2 fl (81-99); Mean Platelet Volume 7.4 fl (7.4-10.4); Monocytes # 0.2 K/mm3 (0.1-1.0); Monocytes % 4.7 % (1.7-9.3); Neutrophils % 70.9 % (37.0-80.0); Platelet Count 397 K/mm3 (142-424); Red Blood Count 4.97 M/mm3 (4.20-5.40); Red Cell Distribution Width 13.6 % (11.5-17.5); White Blood Count 4.2 K/mm3 (4.8-10.8)
[2022-02-23 11:32] LABS: Bacteria,Urine Trace /lpf; RBC,Urine Occasional #/hpf (0-3); Yeast,Urine Occasional /lpf
[2022-02-23 11:34] LABS: Lipase 91 U/L (23-300)
[2022-02-23 12:27] LABS: Chloride 103 mmol/L (98-107)
[2022-02-23 12:28] LABS: Potassium 3.7 mmoL/L (3.5-5.1); Sodium 140 mmol/L (136-145)
[2022-02-23 12:30] LABS: Albumin Level 4.8 g/dl (3.5-5.0); Albumin/Globulin Ratio 1.5 (1.1-1.8); Alkaline Phosphatase 162 U/L (38-126); Anion Gap 13.7 mEq/L (5-15); Aspartate Amino Transferase 540 U/L (14-36); Bilirubin,Total 5.6 mg/dl (0.2-1.3); Blood Urea Nitrogen 9 mg/dl (7-17); Calcium 8.6 mg/dl (8.4-10.2); Carbon Dioxide 27 mmol/L (22.0-30.0); Creatinine Clearance Estimated 139 mL/min (50-200); Estimated Glomerular Filt Rate 72 ml/min (>60); GFR (African American) 87 ML/MIN (>60); Globulin 3.2 g/dL (1.3-3.2); Glucose 114 mg/dl (74-100)
[2022-02-23 12:37] LABS: Alanine Aminotransferase 807 U/L (12-78)
--- NOTE | 2022-02-23 12:39 | US_ITS ---
PROCEDURE INFORMATION: Exam: US Abdomen, Limited; Right Upper Quadrant Exam date and time: 02/23/2022 1:03 PM Age: 36 years old Clinical indication: Abdominal pain; Acute; Additional info: N, v, elevated lfts TECHNIQUE: Imaging protocol: US abdomen. Real time ultrasound with image documentation. Limited exam focused on the right upper quadrant. COMPARISON: US OB BIOPHYSICAL PROFILE 09/18/2021 10:22 AM FINDINGS: Liver: Mass in the left lobe of the liver 3.1 x 1.9 by 2.4 cm. . There is a diffuse increase in hepatic parenchymal echogenicity, consistent with fatty infiltration. Gallbladder: Multiple gallstones in the gallbladder. Gallbladder wall 3.3 mm. Pericholecystic fluid adjacent to the gallbladder. Common bile duct: Common bile duct 2 mm Pancreas: Visualized pancreas is unremarkable. Right kidney: Right kidney 10.3 cm. No hydronephrosis IMPRESSION: 1. Multiple gallstones in the gallbladder. Gallbladder wall 3.3 mm. Pericholecystic fluid adjacent to the gallbladder. Findings may reflect acute cholecystitis 2. Mass in the left lobe of the liver 3.1 x 1.9 by 2.4 cm. May recommend focal fatty sparing of the liver. Recommend liver MRI
--- NOTE | 2022-02-23 12:40 | PC.NURSE ---
Ultrasound has been called to notify them of a gallbladder ultrasound needed
--- NOTE | 2022-02-23 13:05 | PC.NURSE ---
Patient going to ultrasound
--- NOTE | 2022-02-23 13:29 | PC.NURSE ---
Patient back from ultrasound
--- NOTE | 2022-02-23 13:30 | PC.NURSE ---
Naun damian speaking with about US findings
--- NOTE | 2022-02-23 13:30 | PC.NURSE ---
has been paged.
--- NOTE | 2022-02-23 13:56 | PC.NURSE ---
[facility] called for pt needing ercp, they are to call back.
--- NOTE | 2022-02-23 14:00 | PC.NURSE ---
Dr Temple speaking with Dr Hilton
--- NOTE | 2022-02-23 14:05 | PC.NURSE ---
Pt updated on POC.
[2022-02-23 14:16] LABS: Coronavirus 19, PCR Not Detected (NotDetected); Influenza A, PCR Not Detected (NotDetected); Influenza B, PCR Not Detected (NotDetected)
--- NOTE | 2022-02-23 14:37 | PC.NURSE ---
on the phone with SIVAAD
== END 2022-02-23 14:43 | disposition home or self-care (01) ==
PROVIDERS: Emergency Provider Emergency Medicine; PCP Internal Medicine Adolescent Medicine
DX: K80.71 Calculus of gallbladder and bile duct without cholecystitis with obstruction (principal); R11.2 Nausea with vomiting, unspecified; R19.7 Diarrhea, unspecified; I10 Essential (primary) hypertension; Z20.822 Contact with and (suspected) exposure to COVID-19
CPT/HCPCS: 76705; 80053; 81001; 81025; 83690; 85025; 96361; 96365; 96374; 96375; 99284; C9803; J2405; U0003; U0005

== ENCOUNTER → 2022-02-25 10:41 | Outpatient (CLI) | payer OTHER, SELFPAY ==
[2022-02-25 11:16] LABS: Basophils # 0.1 K/mm3 (0-0.2); Basophils % 1.5 % (0.1-2.0); Eosinophils # 0.1 K/mm3 (0.0-0.4); Eosinophils % 2.7 % (0.1-12.0); Hemoglobin 13.4 g/dL (12.2-16.2); Lymphocytes # 1.2 K/mm3 (0.7-4.5); Mean Corpuscular HGB Conc 33.6 g/dL (31.8-35.4); Mean Corpuscular Hemoglobin 29.8 pg (27.0-31.2); Mean Corpuscular Volume 88.6 fl (81-99); Mean Platelet Volume 7.8 fl (7.4-10.4); Monocytes # 0.3 K/mm3 (0.1-1.0); Monocytes % 6.9 % (1.7-9.3); Neutrophils % 55.9 % (37.0-80.0); Platelet Count 382 K/mm3 (142-424); Red Blood Count 4.51 M/mm3 (4.20-5.40); Red Cell Distribution Width 13.6 % (11.5-17.5); White Blood Count 3.6 K/mm3 (4.8-10.8)
[2022-02-25 11:30] LABS: Alanine Aminotransferase 419 U/L (12-78); Albumin Level 4.5 g/dl (3.5-5.0); Albumin/Globulin Ratio 1.9 (1.1-1.8); Alkaline Phosphatase 114 U/L (38-126); Amylase 46 U/L (30-110); Anion Gap 10.9 mEq/L (5-15); Aspartate Amino Transferase 111 U/L (14-36); Blood Urea Nitrogen 4 mg/dl (7-17); Calcium 8.9 mg/dl (8.4-10.2); Carbon Dioxide 29 mmol/L (22.0-30.0); Chloride 105 mmol/L (98-107); Estimated Glomerular Filt Rate 95 ml/min (>60); GFR (African American) 115 ML/MIN (>60); Globulin 2.4 g/dL (1.3-3.2); Glucose 116 mg/dl (74-100); Lipase 313 U/L (23-300); Potassium 3.9 mmoL/L (3.5-5.1); Sodium 141 mmol/L (136-145); Total Protein,Serum 6.9 g/dl (6.3-8.2)
== END ==
PROVIDERS: Visit Provider Internal Medicine Adolescent Medicine
DX: K81.0 Acute cholecystitis (principal)
CPT/HCPCS: 36415; 80053; 82150; 83690; 85025

== ENCOUNTER → 2022-03-05 08:03 | Outpatient (CLI) | payer OTHER, SELFPAY ==
--- NOTE | 2022-03-05 08:07 | MR_ITS ---
FINAL REPORT CLINICAL HISTORY: LIVER MASS. abnormal us. 20ml prohance given. COMPARISON: Ultrasound dated February 23, 2022 FINDINGS: Multiplanar MR imaging of the abdomen was performed without and with contrast. There is a 20 mm focus of slightly increased T2 signal in the lateral left hepatic lobe. This focus demonstrates mild restricted diffusion. This enhances on early postcontrast imaging. This does not appear to represent a cyst or hemangioma. There is no evidence of biliary ductal dilatation. There are multiple gallstones in the gallbladder. A small hiatal hernia is present. No other mass or adenopathy is identified. No abnormal fluid collection is seen. No abnormal contrast enhancement is seen on the postcontrast images. IMPRESSION: Left hepatic lobe mass does not appear to represent a cyst or hemangioma. This may represent an adenoma. Other hepatic neoplasm cannot be excluded. Recommend follow-up to evaluate for stability in 6 months. Cholelithiasis. Reviewed, Interpreted and Dictated by Lebron Cervantes III, MD Transcribed by Napoleon Melgar Authenticated by Lebron Cervantes III, MD on 03/05/2022 10:18:23 AM [facility]
[2022-03-05 09:40] LABS: MANUAL DIFFERENTIAL MANUAL DIFFERENTIAL (MANUAL DIFF)
[2022-03-05 10:13] LABS: Basophils # 0.1 K/mm3 (0-0.2); Basophils % 1.3 % (0.1-2.0); Eosinophils # 0.1 K/mm3 (0.0-0.4); Eosinophils % 2.5 % (0.1-12.0); Hematocrit 41.2 % (37.0-47.0); Hemoglobin 13.7 g/dL (12.2-16.2); Lymphocytes # 1.3 K/mm3 (0.7-4.5); Lymphocytes % 31.8 % (10-50); Mean Corpuscular HGB Conc 33.3 g/dL (31.8-35.4); Mean Corpuscular Hemoglobin 29.8 pg (27.0-31.2); Mean Corpuscular Volume 89.3 fl (81-99); Mean Platelet Volume 7.4 fl (7.4-10.4); Monocytes # 0.3 K/mm3 (0.1-1.0); Monocytes % 6.6 % (1.7-9.3); Neutrophils # 2.4 K/mm3 (1.8-7.8); Neutrophils % 57.8 % (37.0-80.0); Platelet Count 433 K/mm3 (142-424); Red Blood Count 4.62 M/mm3 (4.20-5.40); Red Cell Distribution Width 13.5 % (11.5-17.5); White Blood Count 4.1 K/mm3 (4.8-10.8)
[2022-03-05 10:40] LABS: Alanine Aminotransferase 74 U/L (12-78); Albumin Level 4.5 g/dl (3.5-5.0); Albumin/Globulin Ratio 1.9 (1.1-1.8); Alkaline Phosphatase 74 U/L (38-126); Anion Gap 8.3 mEq/L (5-15); Aspartate Amino Transferase 27 U/L (14-36); Bilirubin,Total 0.8 mg/dl (0.2-1.3); Blood Urea Nitrogen 7 mg/dl (7-17); Calcium 9.1 mg/dl (8.4-10.2); Carbon Dioxide 32 mmol/L (22.0-30.0); Chloride 103 mmol/L (98-107); Estimated Glomerular Filt Rate 114 ml/min (>60); GFR (African American) 138 ML/MIN (>60); Globulin 2.4 g/dL (1.3-3.2); Glucose 107 mg/dl (74-100); Potassium 4.3 mmoL/L (3.5-5.1); Sodium 139 mmol/L (136-145); Total Protein,Serum 6.9 g/dl (6.3-8.2)
[2022-03-05 12:05] LABS: Eosinophils % 1 % (0-3); Lymphocytes % 36 % (10-50); Monocytes % 5 % (2-9); Neutrophils % 58 % (42-76); RBC Morphology Normal; Total Cells Counted 100
[2022-03-05 12:06] LABS: Platelet Estimate Moderate Increase
== END ==
PROVIDERS: PCP Internal Medicine Adolescent Medicine; Referring Provider Surgery; Visit Provider Internal Medicine Adolescent Medicine
DX: Z01.812 Encounter for preprocedural laboratory examination (principal); Z11.52 Encounter for screening for COVID-19; K80.10 Calculus of gallbladder with chronic cholecystitis without obstruction; R16.0 Hepatomegaly, not elsewhere classified
CPT/HCPCS: 36415; 74183; 80053; 85007; 85014; 85018; 85048; 85049; A9576; C9803; U0003; U0005

== ENCOUNTER 2022-03-07 08:24 | Day surgery (SDC) | payer OTHER, SELFPAY ==
[2022-03-04 14:32] VITALS: BMI 36.6
[2022-03-07] VITALS (11 sets, daily range): BP systolic 131–154; BP diastolic 74–99; PULSE 75–88; RESP 18–20; TEMP 36.3–43; O2SAT 92–100
--- NOTE | 2022-03-07 09:53 | HMH.ANESCL ---
[facility] Anesthesia Checklist - Patient Identification Patient Identification: Arm Band - Structural Data Admitted From: Home Planned Operative Procedure/s: Julio CésarKira rodas Consent for Planned Operative Procedure(s) Verified: Yes - NPO Status Verified Time NPO: 00:00 - Additional verifications Anesthesia Reactions: No Hx Blood Transfusions: No Blood Transfusion Reaction: No - Airway Assessment C-Spine Mobility Assessed: Yes TMJ Mobility Assessed: Yes Dentition: Good Dentition - Neurological Assessment Level of Consciousness: Awake Hx Seizures: No Numbness or tingling in extremities: No - Anesthesia Plan Anesthesia Risk discussed: Yes Anesthesia Plan: Verified ASA Class: I Anesthesia Type: General [facility] History I have reviewed the patient's past medical history: Yes Medical History: Reports:: Hypertension Denies:: Cancer, Diabetes Mellitus Type 1, Diabetes Mellitus Type 2, Internal Pacemaker, MRSA, Seizures *Have you ever received a pneumonia vaccine?: No *Have you received a flu vaccine this season?: No Other Medical History: Denies: Blood Transfusion Reaction Anesthesia experience/problems:: None Laterality Cases: Right: ACL Repair Other Surgeries: Yes: No Previous Surgery. No: , Pacemaker Amputation: No Fractures: No - *Social History Last grade of school completed: Advanced degree Smoking Status: Never smoker Alcohol Intake: never Substance Use Type: denies use *Occupational Status:: employed Housing: house Household Members: spouse, family *Travel in the last 8 weeks: None Family Hx:: Diabetes
[2022-03-07 10:05] LABS: Urine Pregnancy, HCG Qual. Negative (Negative)
--- NOTE | 2022-03-07 11:53 | HMH.OPNOTE ---
Date of procedure: 03/07/22 Pre-op Diagnosis:: Chronic calculus cholecystitis Post-op Diagnosis:: Same Procedure performed:: Laparoscopic cholecystectomy Surgeon:: Keith Woodson MD TERRITORY SUPERVISOR:: Fredy Aguirre Anesthesia: GETMason Estimated blood loss (mL): 15 Operative findings:: Fairly severe infundibular thickening Multiple stones throughout gallbladder lumen Operative note:: After informed consent was obtained, the patient was taken to the operating room and placed in the supine position. General anesthesia was induced and the abdomen was prepped and draped in a sterile fashion. After infiltration with local anesthetic an infraumbilical incision was made. A Veress needle was placed in position. The abdomen was insufflated. A 5 mm optical trocar was placed in position. Under direct visualization, a 12 mm trocar was placed in the subxiphoid position and 2 additional 5 mm trocars were placed in the right upper quadrant. The gallbladder was elevated up and over the liver margin. The tissue around the cystic duct was carefully dissected. Fairly severe infundibular thickening was noted. Harmonic cherie were then utilized to dissect the gallbladder away from the liver margin and a dome down approach with careful attention to the control of the cystic artery. Endoloops (x2) were placed at the infundibulum. The gallbladder was transected above the Endoloops. It was then placed in a retrieval bag and removed through the subxiphoid trocar site. The right upper quadrant was thoroughly irrigated. No active bleeding or bile leak was noted. Fascia at the subxiphoid trocar site was reapproximated utilizing 0 Ethibond. The remaining trocars were removed. All wounds were irrigated and skin was closed with 4-0 Monocryl in a subcuticular fashion. Steri-Strips were applied. The patient's anesthetic agents were reversed and extubation was completed prior to transfer to recovery in stable condition. Condition: stable Disposition: PACU Specimens:: Gallbladder Complications:: No immediate
--- NOTE | 2022-03-07 11:57 | SUR.PHASEI ---
oral airway in place upon arrival to PACU.
--- NOTE | 2022-03-07 11:59 | HMH.ANESI ---
[facility] Anesthesia Record Part I Intake, IV Amount: 900 Estimated blood loss (mL): 10 Urine output (mL): 0 Blood Pressure: 131/77 SaO2: 92 Pulse Rate: 88 Respiratory Rate: 20 Temperature: 98.3 F Patient is:: Drowsy, Oral/Nasal airway Stable to PACU at:: 11:57
--- NOTE | 2022-03-07 12:05 | SUR.PHASEI ---
Oral airway removed without difficulty.
[2022-03-08 08:15] VITALS: BP 139/74; PULSE 76; TEMP 36.4
--- NOTE | 2022-03-08 08:15 | P.PN_ITS ---
[facility] Anesthesia Record Part II Discharge Time: 12:27 Destination: Surgical Day Care (OP Surgery) PACU nurse assessment reviewed?: Yes Patient Condition:: Good Anesthesia Complications:: None Swallowing reflex intact?: Yes Cyanosis?: No Blood Pressure: 139/74 Pulse Rate: 76 Temperature: 97.5 F Mental Status: Alert & Oriented Pain level:: 3 Nausea and/or vomitting:: None Intake, IV Amount: 0
== END 2022-03-07 13:26 | disposition home or self-care (01) ==
LOC: OR 08:28
PROVIDERS: PCP Internal Medicine Adolescent Medicine; Visit Provider Surgery
PROC: 0FT44ZZ Resection of Gallbladder, Percutaneous Endoscopic Approach (ICD-10-PCS; CPT 47562; principal; 2022-03-07 10:00)
DX: K80.10 Calculus of gallbladder with chronic cholecystitis without obstruction (principal); I10 Essential (primary) hypertension; Z79.899 Other long term (current) drug therapy; E80.6 Other disorders of bilirubin metabolism
CPT/HCPCS: 47562; 81025; 96374; J2405

== ENCOUNTER → 2023-05-06 09:32 | Outpatient (CLI) | payer OTHER, SELFPAY ==
--- NOTE | 2023-05-06 09:39 | CT_ITS ---
FINAL REPORT TECHNIQUE: Axial images were obtained from the lung bases through the iliac crests before and after the administration of intravenous contrast. Oral contrast was administered. This study was performed with techniques to keep radiation doses as low as reasonably achievable (ALARA). Individualized dose reduction techniques using automated exposure control or adjustment of mA and/or kV according to the patient's size were employed. CLINICAL HISTORY: LIVER MASS PT HAS HAD PRIOR US AND MRI FOR SAME AREA COMPARISON: MRI dated March 05, 2022 FINDINGS: CT ABDOMEN WITHOUT AND WITH CONTRAST Precontrast images demonstrate a calcified granuloma in the right lung base. There is a small sliding-type hiatal hernia. There is diffuse fatty infiltration of the liver. There are tiny nonobstructing stones in the right renal collecting system. Abdomen: There is a transiently enhancing 2 cm lesion in the lateral left hepatic lobe of uncertain significance best seen on image 19 of series 5. This corresponds to the MRI abnormality. The spleen, pancreas and adrenal glands are unremarkable. The kidneys enhance normally. There is no mass or adenopathy identified. There is no evidence of bowel obstruction. IMPRESSION: Transiently enhancing 2 cm lesion in the lateral left hepatic lobe of uncertain significance. Adenoma would be the primary consideration. Continued follow-up is recommended to ensure stability. Reviewed, Interpreted and Dictated by Gaurang Dominguez MD Transcribed by Napoleon Melgar Authenticated and [facility]
== END ==
PROVIDERS: PCP Internal Medicine Adolescent Medicine; Visit Provider Physician Assistant
DX: R16.0 Hepatomegaly, not elsewhere classified (principal)
CPT/HCPCS: 74170; Q9967

== ENCOUNTER 2024-05-07 07:23 | Outpatient (CLI) | payer OTHER, SELFPAY ==
--- NOTE | 2024-05-07 07:43 | MR_ITS ---
FINAL REPORT TECHNIQUE: Multiplanar and multisequence MR imaging was performed through the abdomen before and after intravenous contrast administration. CLINICAL HISTORY: ADENOMA OF LIVER 20ML PROHANCE COMPARISON: 04/29/2022 FINDINGS: LUNG BASES: Clear. LIVER: There is a oval enhancing lesion in the left hepatic dome, measuring 13 x 10 mm in size, unchanged since the prior MRI. The appearance is slightly smaller on MRI images compared with CT images. No other enhancing lesions are evident in the liver. There is fatty change within the liver. No intrahepatic biliary duct dilatation is seen. GALLBLADDER: Surgically removed since prior exam. COMMON BILE DUCT: Normal. SPLEEN: Borderline splenomegaly ADRENAL GLANDS: Normal. PANCREAS: Normal signal intensity. No evidence of acute pancreatitis. No pancreatic ductal dilation. KIDNEYS: A small left renal cyst is again noted, stable when compared to the prior exam. LYMPH NODES: No adenopathy. IMPRESSION: Stable oval enhancing lesion in the left hepatic dome as described, considered benign. This could represent a hemangioma, focus of FNH, or an adenoma. Reviewed, Interpreted and Dictated by Kaitlynn Bowens MD Transcribed by Isa Jovel Authenticated and [facility]
[2024-05-07] MEDS: GADOTERIDOL INJ 20ML SYRINGE 20 ML IV (08:37)
[2024-05-07] MEDS: 0.9 % SODIUM CHLORIDE 50 ML VIAL IV (08:37)
[2024-05-07] MEDS: SODIUM CHLORIDE 0.9% 10ML SYR (RAD ONLY) 10 ML IV (08:37)
== END 2024-05-07 23:59 | disposition home or self-care (01) ==
LOC: RAD 07:24
PROVIDERS: PCP Internal Medicine Adolescent Medicine; Visit Provider Physician Assistant
DX: D13.4 Benign neoplasm of liver (principal)
CPT/HCPCS: 74183; A9576

== ENCOUNTER 2025-05-16 08:24 | Outpatient (CLI) | payer OTHER, SELFPAY ==
--- NOTE | 2025-05-16 08:27 | MR_ITS ---
FINAL REPORT CLINICAL HISTORY: BENIGN NEOPLASM OF LIVER prior mri last year COMPARISON: 05/07/2024 and 03/05/2022 FINDINGS: Multiplanar MR imaging of the abdomen was performed without and with contrast. There is a subtle focus of abnormal signal in the superior lateral segment of the left lobe of the liver seen on T2 axial images. The remainder of the hepatic parenchyma is homogeneous. The gallbladder is not identified on today's exam. The spleen is normal in size. The pancreas, adrenal glands, and kidneys are unremarkable. Post infusion images demonstrate mild enhancement identified of the level of the abnormality in the lateral segment of the left lobe of the liver. Enhancement measures 1.3 cm in maximum dimension and is well seen on image 39 of series 18. This is unchanged from April of 2024 and stable to February 2022. IMPRESSION: Stable benign focus in the liver likely represents FNH versus flash filling hemangioma. Reviewed, Interpreted and Dictated by Gaurang Dominguez MD Transcribed by Kell Alfaro Authenticated and [facility]
--- OUTSIDE RECORDS SUMMARY | 2025-05-16 08:27 | XMS_ITS | Continuity of Care Document ---
Author Organization [place] [facility] [place] [facility] [place], [facility] Address [address] [facility] [address] [place] [address] Care Team Providers Care Director Regulatory Agency Name Role Phone LEFTY BARAJAS Primary Care Provider [phone] Assessment Encounter Date Assessment Date Assessment LastModified by Organization Details LastModified Time 05/06/2025 05/06/2025 40-year-old female with left hepatic dome liver mass, measuring 1.8 cm on MRI October 30, 2022 and then [address] 05/06/23. Most recent MRI Liver 04/2024 showed interval decrease in size to 1.3 cm. Has appeared to favor a hepatic adenoma. She has been off of contraceptives since 2022. -AFP, CBC, CMP, INR were previously unremarkable at the time of diagnosis. We will repeat labs per below. -We will repeat her MRI now. If stable or continued interval improvement, no further surveillance imaging is likely to be necessary. Will call with the result and plan for follow-up thereafter. [email or web address] Not available 05/06/2025 12:26:23 Plan of Treatment Reminders Order Date Submit Date Provider Last Modified By Organization Details Last Modified Time Details Appointments None recorded. Lab CMP, serum or plasma 2024 025 [facility] (Lab), [address], [place], [address], 04:08:52 CBC w/ auto diff 2024 025 [facility] (Lab), [address], [place], [address], 5 04:08:52 afp (alpha-fet oprotein) tumor marker, serum or plasma 2024 025 [facility] (Lab), [address], [place], [address], 5 04:08:53 HbA1c (hemoglobi n A1c), blood 2024 025 [facility] (Lab), [address], [place], [address], 5 04:08:53 lipid panel, serum 2024 025 [facility] (Lab), [address], [place], [address], 5 04:08:53 TSH + free T4, serum 2024 025 [facility] (Lab), [address], [place], [address], 5 04:08:53 Referral None recorded. Procedures None recorded. Surgeries None recorded. Imaging MRI, liver, w/wo contrast 2024 025 [facility] (Scheduling), [address], [place], [address], 5 04:08:44 Medication Orders None recorded. Patient TargetsNo targets recorded. Patient InstructionsNo instructions recorded. Reason for Referral None Reported. Problems Name Problem SNOMED Code Status Onset Date Resolution Date Notes Provider Name and Address Organization Details Recorded Time Liver mass 077614587 Active 023 Tavares Jovel PA-C [address], [place], [address], [facility] - [facility] [place] [facility] [place] 3 09:28:55 Adenoma of liver 600138806 Active 023 Tavares Jovel PA-C [address], [place], [address], [place] [facility] & [place] 09:31:03 Problem Notes None recorded. Procedures Surgical History Date Name Laterality Status Provider Name and Address Organization Details Recorded Time 11/17/19 22 cholecystectomy completed [facility] [place] [facility] [place] 03/28/2023 09:08:42 11/17/19 22 ligation of fallopian tube completed [facility] & [place] 03/28/2023 09:08:57 11/17/19 reconstruction of anterior cruciate ligament of knee joint completed [facility] & [place] 03/28/2023 09:09:22 Imaging Results None recorded. Procedure Notes None recorded. Medical Equipment None Reported. Allergies No known drug allergies Medications Name Sig Start Date Stop Date Status Note LastModified by Organization Details LastModified Time labetalol 200 mg tablet TAKE 1 TABLET BY MOUTH TWICE DAILY 03/28 completed Not Available Not Available Not Available hydrocodone 5 mg-acetamin ophen 325 mg tablet TAKE 1 TO 2 TABLETS BY MOUTH EVERY 6 HOURS NEEDED FOR POST OP PAIN 03/28 completed Not Available Not Available Not Available oxycodone-a cetaminophe n 5 mg-325 mg tablet TAKE ONE TABLET BY MOUTH EVERY 4 TO 6 HOURS NEEDED FOR SEVERE pain MAY CAUSE DROWSINES S 03/28 completed Not Available Not Available Not Available metoclopram norm 5 mg tablet TAKE 1 TABLET BY MOUTH 4 TIMES DAILY, TAKE 30 MINUTES BEFORE MEAL(S) FOR 14 DAYS 03/28 completed Not Available Not Available Not Available labetalol 100 mg tablet TAKE 1 TABLET BY MOUTH TWICE DAILY 03/28 completed Not Available Not Available Not Available ondansetron 4 mg disintegrat ing tablet DISSOLVE 1 TABLET IN MOUTH THREE TIMES DAILY NEEDED FOR NAUSEA 03/28 completed Not Available Not Available Not Available Vitals Date Recorded Body weight Body mass index (BMI) Body height Body temperature Oxygen saturation Oxygen saturation in Arterial blood by Pulse oximetry Heart rate Systolic blood pressure Diastolic blood pressure Provider Name and Address Organization Details Last Updated DateTime 5 685886. 59 g 38.7 kg/m2 165.1 cm 98.3 [degF] 98 % 98 % 80 /min 135 mm[Hg] 94 mm[Hg] Florina Hdz [facility] & [place] 09:02:39 Social History Question Answer Notes LastModified by Organizat ion Details LastModified Time Tobacco Smoking Status Never Smoker Radha Casper null, [place] [facility] & [place] 03/28/2023 09:07:56 What Is Your Level Of Caffeine Consumption? Moderate Information not available 03/28/2023 Sex: Unknown Functional Status Question Answer Note LastModified by Organizat ion Details LastModified Time Do you use any illicit or recreational drugs? No Information not available 03/28/2023 What is your level of alcohol consumption? None Information not available 03/28/2023 Mental Status None recorded. Family History Relationship Description Onset Age of this Age Resolved Age Notes LastModified by Organization Details LastModified Time Father Diabetes mellitus [email or web address] Not available 2024 08:39:10 Father Hypertensive disorder Not available 2022 09:07:36 Father Disorder of endocrine system pt. added direct ly (05/05) [email or web address] Not available 05/05/2025 09:08:03 Maternal Grandfather Disorder of endocrine system pt. added direct ly (05/05) [email or web address] Not available 05/05/2025 09:08:03 Medical History No medical history recorded. Gynecological HistoryNo gynecological history recorded. Obstetrics History GPAL:G 0 P 0 0 0 0 Immunizations Vaccine Type Date Status Note Provider Nam e and Address Organization Details Recorded Time COVID-19, mRNA, LNP-S, PF, 100 mcg/0.5mL dose or 50 mcg/0.25mL dose 08/09/2021 completed Radha Casper null, [place] [facility] & [place] 03/28/2023 09:03:22 COVID-19, mRNA, LNP-S, PF, 100 mcg/0.5mL dose or 50 mcg/0.25mL dose 09/06/2021 completed Radha Casper null, [place] [facility] [place] [facility] [place] 03/28/2023 09:03:22 Tdap 12/14/2014 completed Radha Casper null, [place] [facility] [place] [facility] [place] 03/28/2023 09:03:22 Past Encounters Encounter ID Performer Location Encounter Start Date Encounter Closed Date Diagnosis/Indication Diagnosis SNOMED-CT Code Diagnosis ICD10 Code Diagnosis Note [id number] Tavares Jovel PA-C [facility] [address] [facility] [address] [place] [address] 05/06/2025 08:38:37 05/06/2025 09:58:00 Liver mass 641949357 R16.0 Adenoma of liver 5447093 08 D13.4 History an d physical examination, annual for health maintenance 06749492 Z00.00 Patient states that she has not had routine lab monitoring performed in over 1 year. Obtain labs per below. Health Concerns Section Related Observation LastModified by Organization Detai ls LastModified Time None Recorded Concern Status LastModified by Organization Details LastModified Time None Recorded Payers Encounter Date Sequence Insurance Name Policy Number Policy Zhu Covered Member ID Zhu Member ID Guarantor Name 05/06/2025 1 [facility] [id number] Khushboo Gardner [id number] Khushobo Gardner Notes Date Note Type Note Provider Name and Address Organization Details Recorded Time 05/06/2025 text/html PCURRENT ( 5): Ms. Gardner presents to the office today for 1 year follow-up regarding hepatic lesion, suspected to represent a hepatic adenoma. Last imaging was MRI 1 year ago which showed interval decreased size of the lesion to 13 mm. She reports feeling well overall at this time. She denies unintentional weight loss or abdominal pain. She has a history of tubal ligation in 2022 and has been off of contraceptives since that time. She reports that she has not had routine labs performed in over 1 year. Tavares Jovel PA-C [address] [facility], [place], [address], [place] [facility] [place] [facility] [place] 05/06/2025 12:26:38 OBGyn Episode No OBEpisode recorded.
--- OUTSIDE RECORDS SUMMARY | 2025-05-16 08:27 | XMS_ITS | Encounter Summary ---
Author Organization Healthcare Address [address] [place] [address] Care Team Providers Care Linking Machine Operator Name Role Phone Unavailable Primary Care Provider Unavailabl e Encounter Details Date Type Department Care Team (Late st Contact Info) Description 03/25/2022 Community Orders [facility] [address] [place] [address] Archana Bhat, [employer] [address] [place] [address] Liver mass (Primary Dx) Social History Tobacco Use Types Packs/Day Years Used Date Smoking Tobacco: Never Assessed Comments Unknown Sex and Gender Information Value Date Recorded Sex Assigned at Not on file Legal Sex Female 7:50 PM EDT Gender Identity Not on file Sexual Orientation Not on file documented as of this encounter Plan of Treatment Not on file documented as of this encounter Visit Diagnoses Diagnosis Liver mass- Primary Unspecified disorder of liver documented in this encounter
--- OUTSIDE RECORDS SUMMARY | 2025-05-16 08:27 | XMS_ITS | Clinical Summary ---
Author Organization Healthcare Address [address] [place] [address] Care Team Providers Care High School Coach Name Role Phone Unavailable Primary Care Provider Unavailabl e Social History Tobacco Use Types Packs/Day Years Used Date Smoking Tobacco: Never Assessed Comments Unknown Sex and Gender Information Value Date Recorded Sex Assigned at Not on file Legal Sex Female 7:50 PM EDT Gender Identity Not on file Sexual Orientation Not on file Last Filed Vital Signs Vital Sign Reading Time Taken Comments Blood Pressure 136/96 02/23/2022 2:08 PM EDT Pulse 96 02/23/2022 2:08 PM EDT Temperature - - Respiratory Rate 16 02/23/2022 2:08 PM EDT Oxygen Saturation 98% 02/23/2022 2:08 PM EDT RA Inhaled Oxygen Concentration - - Weight - - Height - - Body Mass Index - - Plan of Treatment Not on file
--- OUTSIDE RECORDS SUMMARY | 2025-05-16 08:27 | XMS_ITS | Patient Health Record ---
Author Organization [facility] D BRYON Address [address] [place] [address] Care Team Providers Care Flask Carrier Name Role Phone Kei Conklin Primary Care Provider Allergies No Known Allergies Immunizations Vaccine Route Administration Date Status Comme nts FLUZONE 6MO - OLDER IM Intramuscular 10/21/2024 Administer ed Problems Problem Type SNOMED Code ICD Code Onset Dates Problem Status W/U Status Risk Notes Problem Hypertension, essential (I10) Active confirmed Vital Signs Heart Rate 88 /min 10/21/2024 Temperature 98 degrees Fahrenheit 10/21/2024 Blood pressure diastolic 80 mm Hg 10/21/2024 Height 66 in 10/21/2024 Blood pressure systolic 124 mm Hg 10/21/2024 Weight 241 lbs 10/21/2024 BMI 38.89 kg/m2 10/21/2024 Encounters Encounter Location Date Provider Diagnosis [address] [address] 10/21/2024 Kei Katerin Impacted cerumen of left ear H61.22 and Encounter for immunization Z23 Assessments Encounter Date Diagnosis (ICD Code) Assessment Notes Treatment Notes Treatment Clinical Notes Section Notes 10/21/2024 Impacted cerumen of left ear (ICD-10 - H61.22) Provided washout of b/l ears to reduce wax burden in office today. Repeat exam revealed clear TM w/o signs of infection so no further intervention needed. Discussed need to avoid Q-tips in the ear canal. Discussed natural function of wax and need for gentle cleansing, avoiding alcohol, sweet oil use discussed. 10/21/2024 Encounter for immunization (ICD-10 - Z23) Plan Of Treatment Pending Test Test Name Order Date Ultrasound : Kidneys, Bilateral 07/12/20 10 H-URINE CULTURE 06/14/2010 Insurance Providers Payer Name Payer Address Payer Phone Subscriber Number Group Number Insured Name Patient Relationship to Insured Coverage Start Date Coverage End Date [facility] [address] [place] [phone] [id number] Khushboo Gardner Self - patient is the insured Medications Administered Medication Instructions Date of Administration Dosage Notes Promethazine HCL 10/03/2014 25 mg Medical (General) History Medical History History ICD Code torn ACL x 2 - repaired Obesity 278.00 Surgical History Surgery Date(Month/Year) Knee surgery 2003 D&C 2013 tubligation 11/2021 Julio César Tesfaye at [facility] 02/2022 Hospitalization History Reason Date(Month/Year) child 09/2021
--- OUTSIDE RECORDS SUMMARY | 2025-05-16 08:27 | XMS_ITS | Data Portability ---
Author Organization [facility]LEX[facility] Patel ADMIN Address [address] [place] [id number] Care Team Providers Care Clean Out Driller Name Role Phone LEFTY BARAJAS Primary Care Provider Assessment Encounter Date Assessment Date Assessment LastModified by Organization Details LastModified Time 09/23/2022 09/23/2022 # liver mass - needs repeat MRI in minimum of 6 months - AFP, liver enzymes - Referral placed to [facility]. [email or web address] Not available 09/23/2022 09:09:05 03/28/2023 03/28/2023 38-year-old ashutosh loredo with left hepatic dome liver mass, measuring 1.8 cm on MRI October 30, 2022. This favored hepatic adenoma. -CT abdomene liver mass protocol ordered for surveillance, further characterization of the lesion. - AFP, CBC, CMP, INR all unremarkable at last OV - Referral previously placed to [facility] on 2 seperate occasions but she never heard from them to schedule. At this point, we will continue her surveillance and refer if the lesion appears unstable. If stable and c/w adenoma, would recommend MRI in [address] order faxed to [facility] per patient request [email or web address] Not available 03/28/2023 09:37:30 06/05/2023 06/05/2023 38-year-old ashutosh loredo with left hepatic dome liver mass, measuring 1.8 cm on MRI October 30, 2022 and then [address] 05/06/23. This favors hepatic adenoma. - Will repeat AFP, CBC, CMP, INR. These were unremarkable on 09/23/22 - Referral previously placed to [facility] on 2 seperate occasions but she never heard from them to schedule. At this point, we will continue her surveillance and refer if the lesion appears unstable. Since mass appears stable (<20% increase in size over the past 6 months) and c/w adenoma, would recommend MRI in 1 year. Lab order faxed to [facility] per patient request [email or web address] Not available 06/05/2023 23:16:22 04/20/2024 04/20/2024 38-year-old fema facundo with left hepatic dome liver mass, measuring 1.8 cm on MRI October 30, 2022 and then [address] 05/06/23. This favors hepatic adenoma. -AFP, CBC, CMP, INR were previously unremarkable at the time of diagnosis. - Referral previously placed to GI/Hepatology on 2 seperate occasions but she never heard from them to schedule. At this point, we will continue her surveillance and refer if the lesion appears unstable. Since mass appears stable (<20% increase in size over the past 6 months) and c/w adenoma, we have opted for repeat MRI in 1 year, which is now due. Order placed and faxed to [facility] per the patient's request. Will call with the result and plan for follow-up thereafter. Not available 04/20/2024 17:23:02 05/06/2025 05/06/2025 40-year-old fema facundo with left hepatic dome liver mass, measuring [...] the result and plan for follow-up thereafter. Not available 05/06/2025 12:26:23 Plan of Treatment Reminders Order Date Submit Date Provider Last Modified By Organization Details Last Modified Time Details Appointments None recorded. Lab CMP, serum or plasma 2024 025 [facility] (Lab), [address], [place], [address], 5 04:08:52 CBC w/ auto diff 2024 025 [facility] (Lab), [address], [place], [address], 5 04:08:52 afp (alpha-fet oprotein) tumor marker, serum or plasma 2024 025 [facility] (Lab), [address], [place], [place], [address], 5 04:08:53 HbA1c (hemoglobi n A1c), blood 2024 025 [facility] (Lab), [address], [place], [address], 5 04:08:53 lipid panel, serum 2024 025 [facility] (Lab), [address], [place], [place], [address], 5 04:08:53 TSH + free T4, serum 2024 025 [facility] (Lab), [address], [place], [place], [address], 5 04:08:53 CMP, serum or plasma [email or web address] (Lab), [address], [place], [address], 3 09:33:08 CBC w/ auto diff [email or web address] (Lab), [address], [place], [address], 3 09:33:08 PT/INR [email or web address] (Lab), [address], [place], [address], 3 09:33:08 afp (alpha-fet oprotein) tumor marker, serum or plasma [address] (Lab), [address], [place], [address], 3 09:33:09 CBC [address] (Registration ), [address] [place], [address], 2 13:50:11 PT/INR [address] (Registration ), [address] [place], [address], 2 13:50:11 CMP, serum or plasma 2021 022 [facility] (Registration ), [address] [place], [address], 2 10:40:10 afp (alpha-fet oprotein), serum [address] (Registration ), [address] [place], [address], 2 13:50:11 Referral None recorded. Procedures None recorded. Surgeries None recorded. Imaging MRI, liver, w/wo contrast 2024 025 [facility] (Scheduling), [address], [place], [address], 5 04:08:44 MRI, liver, w/wo contrast [address] (Scheduling), [address], [place], [address], 4 09:41:13 CT, abdomen, w/wo contrast - LIVER MASS PROTOCOL * [address] (Scheduling), [address], [place], [address], 3 11:42:02 MRI, liver, w/wo contrast [address] (Centralized Scheduling), [address] [facility], [place], [address], 2 16:28:00 Medication Orders None recorded. Patient TargetsNo targets recorded. Patient Instructions Encounter Date Encounter Id Patient Instructions Last Modified By Organization Details Last Modified Time 03/28/2023 [id number] Exam Date: 10/30/2022 : 1985 Age 37 Gender: F Physician: SABINA TOLEDO Facility: [facility] Facility HSV: Outpatient Exam: MRI ABD W/W/O FINAL REPORT CLINICAL HISTORY: Evaluate liver mass. Pt states she had a CT for her gallbladder 8 months ago where a liver lesion was incidentally found. Pt doesn't c/o any symptoms. Contrast: 20 mL Multihance FINDINGS: Multiplanar MR imaging of the abdomen was performed without and with contrast. An 18 mm focus of contrast enhancement is seen in the lateral segment of the left hepatic lobe at the liver dome. No other hepatic mass is identified. There is no evidence of biliary ductal dilatation. Postoperative changes are seen from cholecystectomy. A small hiatal hernia is present. No abnormal fluid collection is seen. There is a less than 1 cm cyst in the lower pole of the left kidney. There is no evidence of hydronephrosis. IMPRESSION: 18 mm focus of contrast enhancement in the left liver dome, favor an adenoma. If indicated, this could be further evaluated with follow-up CT or MRI to evaluate for stability. Status post cholecystectomy. [email or web address] Not available 03/28/2023 09:34:26 06/05/2023 [id number] Exam Date: 10/30/2022 : 1985 Age 37 Gender: F Physician: SABINA TOLEDO Facility: [facility] Facility HSV: Outpatient Exam: MRI ABD W/W/O FINAL REPORT CLINICAL HISTORY: Evaluate liver mass. Pt states she had a CT for her gallbladder 8 months ago where a liver lesion was incidentally found. Pt doesn't c/o any symptoms. Contrast: 20 mL Multihance FINDINGS: Multiplanar MR imaging of the abdomen was performed without and with contrast. An 18 mm focus of contrast enhancement is seen in the lateral segment of the left hepatic lobe at the liver dome. No other hepatic mass is identified. There is no evidence of biliary ductal dilatation. Postoperative changes are seen from cholecystectomy. A small hiatal hernia is present. No abnormal fluid collection is seen. There is a less than 1 cm cyst in the lower pole of the left kidney. There is no evidence of hydronephrosis. IMPRESSION: 18 mm focus of contrast enhancement in the left liver dome, favor an adenoma. If indicated, this could be further evaluated with follow-up CT or MRI to evaluate for stability. Status post cholecystectomy. [email or web address] Not available 06/05/2023 11:20:16 04/20/2024 [id number] Exam Date: 10/30/2022 : 1985 Age 37 Gender: F Physician: SABINA TLOEDO Facility: [facility] Facility HSV: Outpatient Exam: MRI ABD W/W/O FINAL REPORT CLINICAL HISTORY: Evaluate liver mass. Pt states she had a CT for her gallbladder 8 months ago where a liver lesion was incidentally found. Pt doesn't c/o any symptoms. Contrast: 20 mL Multihance FINDINGS: Multiplanar MR imaging of the abdomen was performed without and with contrast. An 18 mm focus of contrast enhancement is seen in the lateral segment of the left hepatic lobe at the liver dome. No other hepatic mass is identified. There is no evidence of biliary ductal dilatation. Postoperative changes are seen from cholecystectomy. A small hiatal hernia is present. No abnormal fluid collection is seen. There is a less than 1 cm cyst in the lower pole of the left kidney. There is no evidence of hydronephrosis. IMPRESSION: 18 mm focus of contrast enhancement in the left liver dome, favor an adenoma. If indicated, this could be further evaluated with follow-up CT or MRI to evaluate for stability. Status post cholecystectomy. Not available 04/20/2024 14:58:16 Reason for Referral None Reported. Results Created Date Observation Date Name Description Value Unit Range Abnormal Flag Note LastModifiedBy Organization Detail LastModifiedTime 09/23/20 22 09/23/2022 CBC AUTO NO DIFF (HEMO GRAM) WBC 4.8 K/uL 4.0-10 .5 Not Available [facility] ([facility]) [address] , [place], [address], 09/23/2022 10:16:54 09/23/20 22 09/23/2022 CBC AUTO NO DIFF (HEMO GRAM) RBC 4.6 M/mm3 4.2-6. 4 Not Available [facility] ([facility]) [address] , [place], [address], 09/23/2022 10:16:54 09/23/20 22 09/23/2022 CBC AUTO NO DIFF (HEMO GRAM) HGB 13.1 gm/dL 12.5-1 6.0 Not Available [facility] ([facility]) [address] , [place], [address], 09/23/2022 10:16:54 09/23/20 22 09/23/2022 CBC AUTO NO DIFF (HEMO GRAM) HCT 39.3 % 37.0-4 7.0 Not Available [facility] ([facility]) [address] [place], [address], 09/23/2022 10:16:54 09/23/20 22 09/23/2022 CBC AUTO NO DIFF (HEMO GRAM) MCV 85.4 fL 78-100 Not Available [facility] ([facility]) [address] [place], [address], 09/23/2022 10:16:54 09/23/20 22 09/23/2022 CBC AUTO NO DIFF (HEMO GRAM) MCH 28.5 pg 27-31 Not Available [facility] ([facility]) [address] , [place], [address], 09/23/2022 10:16:54 09/23/20 22 09/23/2022 CBC AUTO NO DIFF (HEMO GRAM) MCHC 33.3 g/dL 32-36 Not Available [facility] ([facility]) [address], [place], [address], 09/23/2022 10:16:54 09/23/20 22 09/23/2022 CBC AUTO NO DIFF (HEMO GRAM) RDW 12.6 % 11.5-1 4.0 Not Available [facility] ([facility]) [address], [place], [address], 09/23/2022 10:16:54 09/23/20 22 09/23/2022 CBC AUTO NO DIFF (HEMO GRAM) platelet count 353 K/uL 150-45 0 Not Available [facility] ([facility]) [address], [place], [address], 09/23/2022 10:16:54 09/23/20 22 09/23/2022 CBC AUTO NO DIFF (HEMO GRAM) manual differential NO Not Available [facility] ([facility]) [address] , [place], [address], 09/23/2022 10:16:54 09/23/20 22 09/23/2022 COMP METAB OLIC PANEL sodium 141 mmol/ L 136-14 5 Not Available [facility] ([facility]) [address], [place], [address], 09/23/2022 10:40:09 09/23/20 22 09/23/2022 COMP METAB OLIC PANEL potassium 4.2 mmol/ L 3.6-5. 0 Not Available [facility] ([facility]) [address] , [place], [address], 09/23/2022 10:40:09 09/23/20 22 09/23/2022 COMP METAB OLIC PANEL chloride 105 mmol/ L 98-107 Not Available [facility] ([facility]) [address] , [place], [address], 09/23/2022 10:40:09 09/23/20 22 09/23/2022 COMP METAB OLIC PANEL carbon dioxide 29.4 mmol/ L 21.0-3 2.0 Not Available [facility] ([facility]) [address] , [place], [address], 09/23/2022 10:40:09 09/23/20 22 09/23/2022 COMP METAB OLIC PANEL anion gap 10.8 Not Available [facility] ([facility]) [address] , [place], [address], 09/23/2022 10:40:09 09/23/20 22 09/23/2022 COMP METAB OLIC PANEL glucose 110 mg/dL 70-120 Not Available [facility] ([facility]) [address] , [place], [address], 09/23/2022 10:40:09 09/23/20 22 09/23/2022 COMP METAB OLIC PANEL BUN 11 mg/dL 7-18 Not Available [facility] ([facility]) [address] , [place], [address], 09/23/2022 10:40:09 09/23/20 22 09/23/2022 COMP METAB OLIC PANEL creatinine 0.9 mg/dL 0.6-1. 3 Not Available [facility] ([facility]) [address] , [place], [address], 09/23/2022 10:40:09 09/23/20 22 09/23/2022 COMP METAB OLIC PANEL glomerular filtration rate >60 mlper min 60- Not Available [facility] ([facility]) [address], [place], [address], 09/23/2022 10:40:09 09/23/20 22 09/23/2022 COMP METAB OLIC PANEL total protein 7.5 g/dL 6.4-8. 2 Not Available [facility] ([facility]) [address], [place], [address], 09/23/2022 10:40:09 09/23/20 22 09/23/2022 COMP METAB OLIC PANEL albumin 4.2 g/dL 3.4-5. 0 Not Available [facility] ([facility]) [address], [place], [address], 09/23/2022 10:40:09 09/23/20 22 09/23/2022 COMP METAB OLIC PANEL globulin 3.3 Not Available [facility] ([facility]) [address], [place], [address], 09/23/2022 10:40:09 09/23/20 22 09/23/2022 COMP METAB OLIC PANEL alb/glob ratio 1.3 0.7-2 Not Available [facility] ([facility]) [address], [place], [address], 09/23/2022 10:40:09 09/23/20 22 09/23/2022 COMP METAB OLIC PANEL calcium 8.6 mg/dL 8.5-10 .5 Not Available [facility] ([facility]) [address] , [place], [address], 09/23/2022 10:40:09 09/23/20 22 09/23/2022 COMP METAB OLIC PANEL bilirubin total 0.53 mg/dL 0.10-1 .00 Not Available [facility] ([facility]) [address] , [place], [address], 09/23/2022 10:40:09 09/23/20 22 09/23/2022 COMP METAB OLIC PANEL AST (SGOT) 17 U/L 0-37 Not Available [facility] ([facility]) [address] , [place], [address], 09/23/2022 10:40:09 09/23/20 22 09/23/2022 COMP METAB OLIC PANEL ALT (SGPT) 39 U/L 0-65 Not Available [facility] ([facility]) [address] , [place], [address], 09/23/2022 10:40:09 09/23/20 22 09/23/2022 COMP METAB OLIC PANEL alk phosphatase 50 U/L 46-116 Not Available [facility] ([facility]) [address], [place], [address], 09/23/2022 10:40:09 09/23/20 22 09/23/2022 PT (PROT HROMB IN TIME) W INR prothrombin time 9.2 secon ds 9.3-11 .4 low Not Available [facility] ([facility]) [address], [place], [address], 09/23/2022 12:22:50 09/23/20 22 09/23/2022 PT (PROT HROMB IN TIME) W INR INR 0.9 ratio 0.97-1 .05 low INR is inten ded to be used ONLY for patie nts on stabl e oral antic oagul ant thera py. Thera peuti c Range s: 2.0-3 .0 Usual Thera peuti c Range 2.5-3 .5 For patie nts with histo ry of Multi ple Deep Vein Throm bus or Mecha nical Heart Valve s Not Available [facility] ([facility]) [address] , [place], [address], 09/23/2022 12:22:50 09/23/20 22 09/24/2022 AFP, SERUM , TUMOR MARKE R AFP, serum tumor marker 6.3 NG/mL 0.0-6. 4 Moe Diagn ostic s Elect moe milum inesc ence Immun oassa y (ECLI A) . Value s obtai karel with diffe rent assay metho ds or kits canno t be used inter lenz eably . Resul ts canno t be inter prete d as absol krunal evide nce of the prese nce or absen ce of rigoberto wakefield disea se. . This test is not inter preta ble in pregn ant femal es. Perfo rmed at: - [facility] [address] [facility], [place] [address] Lab Direc tor: Nathan hinojosa PhD, Phone : [phone] Not Available [facility] ([facility]) [address] [facility], [place], [address], 09/24/2022 08:16:24 10/30/20 22 10/30/2022 [facility] [address] [place] [address] Phone: Fax: Name: DANITA GARCIA Exam Date: 2021 : 987 Age 37 Gender : F Access ion: [id number] Physic evon: SABINA SYLVESTER Facili ty: [facility] Facili ty HSV: Outpat ient Exam: MRI ABD W/W/O FINAL REPORT CLINIC AL HISTOR Y: Evalua te liver mass. Pt states she had a CT for her gallbl adder 8 months ago where a liver lesion was incide ntally found. Pt doesn' t c/o any sympto ms. Contra st: 20 mL Multih ance FINDIN GS: Multip lanar MR imagin g of the abdome n was perfor med withou t and with contra st. An 18 mm focus of contra st enhanc ement is seen in the latera l segmen t of the left hepati c lobe at the liver dome. No other hepati c mass is identi fied. There is no eviden ce of biliar y ductal dilata tion. Postop erativ e change s are seen from cholec ystect zana. A small hiatal hernia is presen t. No abnorm al fluid collec tion is seen. There is a less than 1 cm cyst in the lower pole of the left kidney . There is no eviden ce of hydron ephros is. IMPRES LORRI: 18 mm focus of contra st enhanc ement in the left liver dome, favor an adenom a. If indica mar, this could be furthe r evalua mar with follow -up CT or MRI to evalua te for stabil ity. Status post cholec ystect zana. Raul de la cruz d and Electr onical ly Signed by Julio C Cervantes III, MD on 2021 10:53: 35 [place] Dictat ed By: Julio C Cervantes III Transc ribed By: Transc ribed On: 2021 10:53 AM Electr onical ly signed by: Julio C Cervantes III 2021 Thank you for referr DANITA Coombs to [facility] Hospit [facility]. Legall y raul reynoso by JENELLE Garcia III 2021-11 10:53: 35 CC'ed Logic: Orderi ng Provid er: FORD MUHAMMAD Attend ing Provid er: FORD MUHAMMAD Referr ing Provid er: FORD MUHAMMAD Admitt ing Provid er: FORD [email or web address] [place] [address] - Physical Therapy [address], [place], [address], 10/31/2022 11:06:31 05/06/2005/06/2023 CT, abdom en, w/wo contr ast No observ ation record ed. [email or web address] [facility] [address], [place], [address], 06/05/2023 22:26:58 05/09/20 23 05/06/2023 CT, abdom en, w/wo contr ast No observ ation record ed. [facility] (Scheduling) [address], [place], [address], 05/29/2023 12:46:19 05/07/20 24 05/07/2024 MRI, liver , w/wo contr ast No observ ation record ed. MYKE [facility] [address], [place], [address], 05/13/2024 09:50:28 Result Notes None recorded. Problems Name Problem SNOMED Code Status Onset Date Resolution Date Notes Provider Name and Address Organization Details Recorded Time Liver mass 366516824 Active 023 Tavares Jovel PA-C [address] , [place], [address], [facility] - [facility] & [place] 3 09:28:55 Adenoma of liver 528905846 Active 023 Tavares Jovel PA-C [address] , [place], [address], [place] - [facility] & [place] 3 09:31:03 Problem Notes None recorded. Procedures Surgical History Date Name Laterality Status Provider Name and Address Organization Details Recorded Time 11/17/19 22 cholecystectomy completed [facility] - [facility] & [place] 03/28/2023 09:08:42 11/17/19 22 ligation of fallopian tube completed [facility] - [facility] & [place] 03/28/2023 09:08:57 11/17/19 02 reconstruction of anterior cruciate ligament of knee joint completed [facility] [place] - [facility] & [place] 03/28/2023 09:09:22 Imaging Results None recorded. Procedure [...] weight Body mass index (BMI) Body height Oxygen saturation Oxygen saturation in Arterial blood by Pulse oximetry Heart rate Systolic blood pressure Diastolic blood pressure Provider Name and Address Organization Details Last Updated DateTime 3 212977. 18 g 38.9 kg/m2 165.1 cm 96 % 96 % 93 /min 131 mm[Hg] 97 mm[Hg] Radha Casper [facility] & [place] 3 09:10:42 Date Recorded Body weight Body mass index (BMI) Body height Body temperature Oxygen saturation Oxygen saturation in Arterial blood by Pulse oximetry Heart rate Heart rate Systolic blood pressure Diastolic blood pressure Provider Name and Address Organization Details Last Updated DateTime 4 373038. 9 g 38.9 kg/m2 165.1 cm 98.4 [degF] 98 % 98 % 111 /min 109 /min 177 mm[Hg] 95 mm[Hg] Toña Díaz [facility] & [place] 4 14:39:11 Date Recorded Body weight Body mass index (BMI) Body height Body temperature Oxygen saturation Oxygen saturation in Arterial blood by Pulse oximetry Heart rate Systolic blood pressure Diastolic blood pressure Provider Name and Address Organization Details Last Updated DateTime 5 853092. 59 g 38.7 kg/m2 165.1 cm 98.3 [degF] 98 % 98 % 80 /min 135 mm[Hg] 94 mm[Hg] Florina Preciado [facility] & [place] 09:02:39 Date Recorded Body weight Provider Name an d Address Organization Details Last Updated DateTime 09/23/2022 031698.84 g Roula Alexis [facility] & [place] 09/23/2022 09:10:24 Social History Question Answer Notes LastModified by Organizat [employer] Details LastModified Time Tobacco Smoking Status Never Smoker Radha odan [facility] & [place] 03/28/2023 09:07:56 What Is Your Level Of [...] or 50 mcg/0.25mL dose 08/09/2021 completed Radha doan [facility] & [place] 03/28/2023 09:03:22 COVID-19, mRNA, LNP-S, PF, 100 mcg/0.5mL dose or 50 mcg/0.25mL dose 09/06/2021 completed Radha doan [place] [facility] & [place] 03/28/2023 09:03:22 Tdap 12/14/2014 completed RadhaAYUSH [facility] - [facility] - [place] & [place] 03/28/2023 09:03:22 Past Encounters Encounter ID Performer Location Encounter Start Date Encounter Closed Date Diagnosis/Indication Diagnosis SNOMED-CT Code Diagnosis ICD10 Code Diagnosis Note [id number] Sabina [place] NP [facility] [place] [id number] 09/23/2022 08:55:40 09/23/2022 09:17:30 Liver mass 636795415 R16.0 - patient has not yet heard from [facility] GI and hepatology . Referral re-sent today- labs and MRI ordered [id number] Tavares Jovel PA-C [facility] [place] [id number] 03/28/2023 08:51:10 03/28/2023 09:28:48 Liver mass 209124267 R16.0 Adenoma of liver 6678283 08 D13.4 [id number] Tavares Jovel PA-C [facility] [address] [id number] 06/05/2023 10:45:57 06/05/2023 11:21:12 Liver mass 092548684 R16.0 Adenoma of liver 3100651 08 D13.4 [id number] Tavares Jovel PA-C [facility] [address] [id number] 04/20/2024 14:11:28 04/20/2024 14:58:25 Liver mass 396394410 R16.0 Adenoma of liver 7628572 08 D13.4 [id number] Tavares Jovel PA-C [facility] [address] [id number] 05/06/2025 08:38:37 05/06/2025 09:58:00 Liver mass 760824389 R16.0 Adenoma of liver 4258464 08 D13.4 History an d physical examination, annual for health maintenance 04100701 Z00.00 Patient states that she has not had routine lab monitoring performed in over 1 year. Obtain labs per below. Health Concerns Section Related Observation LastModified by Organization Detai ls LastModified Time None Recorded Concern Status LastModified by Organization Details LastModified Time None Recorded Advance Directives Directive None Recorded Payers Insurance Date Sequence Insurance Name Policy Number Policy Zhu Covered Member ID Zhu Member ID Guarantor Name 05/09/2025 1 [facility] [id number] Danita Gardner [id number] Danita Gardner 03/26/2023 1 [facility] [id number] Danita Gardner [id number] Danita Gardner Notes Date Note Type Note Provider Name and Address Organization Details Recorded Time 09/23/2022 text/html (04/07) Patient i s a 37 year old female referred to our office for a liver mass. Patient presented to her PCP with RUQ abd pain, was found to have cholelithiasis and has since had her gall bladder removed. Denies nausea, vomiting, or hematemesis. Denies heartburn. Denies diarrhea or constipation. Denies hematachezia.( 2) patient is here today for follow-up. Reports she still has not heard from [facility]. Denies nausea, vomiting or hematemesis. Denies dysphagia or abdominal pain. Denies episodes of itching or noticing skin appears jaundice. Denies diarrhea, constipation or hematochezia. Sabina Toledo NP [address], [place], [id number], [place] [facility] - [place] & [place] 09/23/2022 09:18:36 03/28/2023 text/html CURRENT (03/28/23 ): Ms. Gardner is a very pleasant 38-year-old female with history of suspected hepatic adenoma initially identified 1 year ago on ultrasound. She underwent MRI abdomen in September that showed a 1.8 cm focus in the left liver dome that favored a hepatic adenoma. AFP, CBC, CMP, and INR at that time were unremarkable. Today, she reports feeling very well at this time and has no physical complaints. She has undergone tubal ligation previously and denies use of estrogen containing medications. Tavares Jovel PA-C [address], [place], [id number], [place] [facility] & [place] 03/28/2023 09:37:53 06/05/2023 text/html PREVIOUS ( 3): Ms. Gardner is a very pleasant 38-year-old female with history of suspected hepatic adenoma initially identified 1 year ago on ultrasound. She underwent MRI abdomen in September that showed a 1.8 cm focus in the left liver dome that favored a hepatic adenoma. AFP, CBC, CMP, and INR at that time were unremarkable. Today, she reports feeling very well at this time and has no physical complaints. She has undergone tubal ligation previously and denies use of estrogen containing medications. CURRENT (06/05/23): Ms. Gardner presents via telephonic encounter today regarding suspected hepatic adenoma. She recently underwent surveillance CT abd w/wo contrast on 05/06. This showed overall stable appearance and favored adenoma. She is feeling well at this time and denies any physical complaints. I spent a total of 7 minutes during this real-time clinical encounter that was initiated by the patient which started at 1039 and ended at 1046. Consent was obtained to engage in telephonic service. Greater than 50% of the time spent was devoted to counseling and coordinating care including review of patient record, patient lab data and studies as well as discussing diagnostic evaluation and workup, planned therapeutic intervention and further disposition of care. Tavares Jovel PA-C [address], [place], [id number], [place] [facility] & [place] 06/05/2023 23:17:32 04/20/2024 text/html PREVIOUS ( 3): Ms. Gardner is a very pleasant 38-year-old female with history of suspected hepatic adenoma initially identified 1 year ago on ultrasound. She underwent MRI abdomen in September that showed a 1.8 cm focus in the left liver dome that favored a hepatic adenoma. AFP, CBC, CMP, and INR at that time were unremarkable. Today, she reports feeling very well at this time and has no physical complaints. She has undergone tubal ligation previously and denies use of estrogen containing medications. PREVIOUS (06/05/23): Ms. Gardner presents via telephonic encounter today regarding suspected hepatic adenoma. She recently underwent surveillance CT abd w/wo contrast on 05/06. This showed overall stable appearance and favored adenoma. She is feeling well at this time and denies any physical complaints. CURRENT (04/20/24): Ms. Gardner presents to the office today for 1-year follow-up regarding hepatic adenoma. She is feeling well at this time. She denies any new medical issues or medications. She is not experiencing any abdominal discomfort or unintentional weight loss. Tavares Jovel PA-C [address], [place], [id number], [facility] & [place] 04/20/2024 17:23:14 05/06/2025 text/html PCURRENT ( 5): Ms. Gardner [...] over 1 year. Tavares Jovel PA-C [address], [place], [id number], [facility] & [place] 05/06/2025 12:26:38 OBGyn Episode No OBEpisode recorded.
[2025-05-16] MEDS: 0.9 % SODIUM CHLORIDE 50 ML VIAL 10 ML IV (09:18)
[2025-05-16] MEDS: SODIUM CHLORIDE 0.9% 10ML SYR (RAD ONLY) 10 ML IV (09:18)
[2025-05-16] MEDS: GADOTERIDOL INJ 20ML SYRINGE 20 ML IV (09:18)
== END 2025-05-16 23:59 | disposition home or self-care (01) ==
LOC: RAD 08:24
PROVIDERS: PCP Internal Medicine Adolescent Medicine; Visit Provider Physician Assistant
DX: D13.4 Benign neoplasm of liver (principal)
CPT/HCPCS: 74183; A9576